=== PATIENT | male | born 1965 | race Two or more races ===

== ENCOUNTER 2017-09-24 19:55 | Inpatient (IN) | payer OTHER ==
[~2017-09-24] VITALS: Ht 167.6 cm; Wt 153.3 kg
[~2017-09-24 19:55] MED LIST: ACET325T9 PO; ATOR10TA PO; CLIN300C8 PO; Hydrocodone/Acetaminophen PO; METF-620 PO
--- NOTE | 2017-09-24 20:20 | PHYS DOC ---
Adult General Chief Complaint Chief Complaint: LOWEREXTREMITY INJURY HPI HPI Patient is a 52 year old M who presents with diabetic wound ulcers or bleeding. Patient was seen last night and the hospital for bleeding diabetic ulcer in which they wrapped it and told to follow-up with with wound care. Patient has appointment with the wound care clinic tomorrow however his wound daily bleeding. Patient currently 9 antibiotics but has been for these nonhealing diabetic foot ulcers. Patient denies any shortness of breath or chest pain. Patient denies any fevers. Patient has no other complaints. Review of Systems Review of Systems GEN: Denies fevers, chills, sweats HEENT: Denies blurred vision, sore throat CV: Denies chest pain RESP: Denies shortness of air, cough GI: Denies n/v/d NEURO: Denies confusion, dizziness MSK: Lower extremity swelling with nonhealing ulcers All other systems were reviewed and found to be within normal limits, except as documented in this note. Allergies Allergies Allergies Coded Allergies Type Severity Reaction Last Updated Verified diphenhydramine Allergy Intermediate 03/27/15 Yes Physical Exam Physical Exam GEN.: Mild distress. Alert and oriented. HEENT: Head is normocephalic, atraumatic NECK: Supple. LUNGS: CTAB. HEART: RRR, S1, S2 present. Peripheral pulses intact ABDOMEN: Soft, nontender. Positive bowel sounds. EXTREMITIES: Without any cyanosis. +2 pitting edema to lower extremity with skin discoloration secondary to nonhealing leg ulcers and venous stasis, no active bleeding seen NEUROLOGIC: Normal speech, normal tone PSYCHIATRIC: Normal affect, normal mood. SKIN: Normal nonhealing leg ulcers Current Patient Data Vital Signs Vital Signs Date Time Temp Pulse Resp B/P (MAP) Pulse Ox O2 Delivery O2 Flow Rate FiO2 09/24/17 20:39 80 19 129/78 (95) 97 Room Air 09/24/17 20:02 97.9 97.9 Lab Values Laboratory Tests Test 09/24/17 20:27 Glucose (Fingerstick) 147 mg/dL (70-99) H EKG EKG 2020: EKG is normal sinus rhythm rate of 80 no STEMI[] Radiology/Procedures Radiology/Procedures [] Course & Med Decision Making Course & Med Decision Making Pertinent Labs and Imaging studies reviewed. (See chart for details) ED course: Patient was seen and examined emergency room septic workup was ordered Patient was updated on plan to admit 2105: Discussed CC/HP/PMH with Dr. Odonnell and recommends admit [] MDM: After reviewing the chart, CC/HPI/PMH, physical exam, [lab results], [ radiological results], I think the patient has chronic nonhealing diabetic foot ulcers on the lower extremity bilaterally that are continuing to bleed and the patient needs wound care and further management. We'll start the patient on IV antibiotics and admit for further evaluation. [] Dragon Disclaimer Dragon Disclaimer This electronic medical record was generated, in whole or in part, using a voice recognition dictation system. Departure Departure Impression: Primary Impression: Diabetic leg ulcer Additional Impression: Leg edema Disposition: ADMITTED INPATIENT Admitting Physician: Holly Odonnell Condition: IMPROVED Problem Qualifiers CHARANJIT JANG DO Sep 24, 2017 20:20
--- NOTE | 2017-09-24 20:23 | EKG ---
[facility] [address] [place] [address] Test Date: 2017-09-24 Test Time: 20:21:02 Pat Name: BLESSING YARBROUGH Department: Room: Gender: M Steward/Stewardess Lounge: BART : 1965 Requested By: CHARANJIT JANG Order Number: [id number] Reading MD: Measurements Intervals [place] Rate: 80 P: 0 MO: 158 QRS: 9 QRSD: 82 T: 26 QT: 378 QTc: 440 Interpretive Statements SINUS RHYTHM VENTRICULAR PREMATURE COMPLEX(ES) QRS(T) CONTOUR ABNORMALITY CONSIDER ANTEROSEPTAL MYOCARDIAL DAMAGE ABNORMAL ECG RI6.01 No previous ECG available for comparison
[2017-09-24 21:04] LABS: BASO # 0.1 x10^3/uL (0.0-0.2); BASO % 1 % (0-3); EOS % 8 % (0-3); HEMOGLOBIN 12.1 g/dL (13.0-17.5); LYMPH # 1.7 x10^3/uL (1.0-4.8); LYMPH % 15 % (24-48); MEAN CORPUSCULAR HEMOGLOBIN 26 pg (25-35); MEAN CORPUSCULAR HGB CONC 32 g/dL (31-37); MEAN CORPUSCULAR VOLUME 83 fL (79-100); MONO % 5 % (0-9); NEUT % 72 % (31-73); PLATELET COUNT 219 x10^3/uL (140-400); RED BLOOD COUNT 4.59 x10^6/uL (4.30-5.70); RED CELL DISTRIBUTION WIDTH 15.6 % (11.5-14.5); WHITE BLOOD COUNT 11.5 x10^3/uL (4.0-11.0)
[2017-09-24 21:09] LABS: INR 1.1 (0.8-1.1); PROTHROMBIN TIME PATIENT 13.1 SEC (11.7-14.0)
[2017-09-24 21:13] LABS: CALCIUM 8.6 mg/dL (8.5-10.1); CREATININE 0.9 mg/dL (0.7-1.3); GFR 88.3; POTASSIUM 3.6 mmol/L (3.5-5.1)
[2017-09-24 21:18] LABS: ALBUMIN 3.4 g/dL (3.4-5.0); ALBUMIN/GLOBULIN RATIO 0.8 (1.0-1.7); TOTAL BILIRUBIN 0.2 mg/dL (0.2-1.0); TOTAL PROTEIN 7.9 g/dL (6.4-8.2)
[2017-09-24] MEDS ORDERED: VANCOMYCIN 2 GM in IV DEXTROSE 5% 500 ML IV ONE (21:30)
[2017-09-24] MEDS ORDERED: ONDANSETRON PF 4 MG/2 ML VIAL. IV PRN (21:30)
[2017-09-24] MEDS ORDERED: VANCOMYCIN 2 GM in IV DEXTROSE 5 %-0.45 % NACL 500 ML IV ONE (21:30)
[2017-09-24 22:00] VITALS: BP 155/81
[2017-09-24] MEDS: VANCOMYCIN PER PHARMACY MC PRN (23:18)
[2017-09-25 03:03] VITALS: BP 116/71
[2017-09-25 04:51] LABS: BASO % 0 % (0-3); EOS % 8 % (0-3); HEMATOCRIT 37.7 % (39.0-53.0); HEMOGLOBIN 11.9 g/dL (13.0-17.5); LYMPH # 1.6 x10^3/uL (1.0-4.8); LYMPH % 15 % (24-48); MEAN CORPUSCULAR HEMOGLOBIN 26 pg (25-35); MEAN CORPUSCULAR HGB CONC 32 g/dL (31-37); MEAN CORPUSCULAR VOLUME 82 fL (79-100); MONO % 7 % (0-9); NEUT % 70 % (31-73); PLATELET COUNT 212 x10^3/uL (140-400); RED BLOOD COUNT 4.58 x10^6/uL (4.30-5.70); RED CELL DISTRIBUTION WIDTH 15.9 % (11.5-14.5)
[2017-09-25 05:07] LABS: ALBUMIN 3.3 g/dL (3.4-5.0); ALBUMIN/GLOBULIN RATIO 0.8 (1.0-1.7); CALCIUM 8.3 mg/dL (8.5-10.1); CREATININE 0.7 mg/dL (0.7-1.3); TOTAL BILIRUBIN 0.3 mg/dL (0.2-1.0); TOTAL PROTEIN 7.5 g/dL (6.4-8.2)
[2017-09-25] MEDS: VANCOMYCIN 2 GM in IV DEXTROSE 5 %-0.45 % NACL 500 ML IV SCH ×2 (06:05→14:11)
[2017-09-25 07:00] VITALS: BP 135/75
--- NOTE | 2017-09-25 07:29 | RAD ---
Portable chest, 09/24/2017: History: Congestive heart failure Comparison is made to a study from 09/20/2016. The heart size is normal. The pulmonary vascularity is at the upper limits of normal. No pulmonary consolidation is seen. There is no evidence of pleural fluid. Moderate spurring is present in the spine. IMPRESSION: No acute cardiopulmonary abnormality is detected.
[2017-09-25] MEDS: LACTOBACILLUS RHAMNOSUS GG 1 CAPSULE. PO SCH ×2 (08:35→20:47)
--- NOTE | 2017-09-25 10:15 | HP ---
ADMIT DATE: 09/24/2017 CHIEF COMPLAINT: Lower extremity injuries. HISTORY OF PRESENT ILLNESS: The patient is a pleasant 52-year-old male who is morbidly obese. He has diabetes and he has severe peripheral vascular disease. Basically, he has had diabetic wounds on his legs. He is also bumped in there bleeding. I have discussed the case with ER physician and the wound care nurse who remained with the patient for wound care and IV antibiotics. PAST MEDICAL HISTORY: Obesity, diabetes, hypertension, hyperlipidemia, chronic pain and arthritis. ALLERGIES: DIPHENHYDRAMINE. FAMILY HISTORY: Diabetes. SOCIAL HISTORY: Does not drink, smoke or take drugs. He works at a [employer]. MEDICATIONS: Reviewed. REVIEW OF SYSTEMS: GENERAL: No history of weight change, weakness or fevers. SKIN: No bruising, hair changes or rashes. EYES: No blurred, double or loss of vision. NOSE AND THROAT: No history of nosebleeds, hoarseness or sore throat. HEART: No history of palpitations, chest pain or shortness of breath on exertion. LUNGS: Denies cough, hemoptysis, wheezing or shortness of breath. GASTROINTESTINAL: Denies changes in appetite, nausea, vomiting, diarrhea or constipation. GENITOURINARY: No history of frequency, urgency, hesitancy or nocturia. NEUROLOGIC: Denies history of numbness, tingling, tremor or weakness. PSYCHIATRIC: No history of panic, anxiety or depression. ENDOCRINE: No history of heat or cold intolerance, polyuria or polydipsia. EXTREMITIES: He complains of pain and oozing. PHYSICAL EXAMINATION: VITAL SIGNS: Temperature afebrile, pulse 97, respirations 18 and blood pressure 144/60. GENERAL: He is alert and cooperative. HEART: Normal S1 and S2. LUNGS: Clear. ABDOMEN: Soft and obese. EXTREMITIES: He has got clean, dry and intact bandaging on both lower extremities, please see the pictures. ENDOCRINE: No thyromegaly. LYMPHATICS: No cervical nodes. HEMATOPOIETIC: No bruising. LABORATORY DATA: White count 11, hemoglobin 12 and platelets 219. Electrolytes: Sodium 137, potassium 4.0, chloride 102, bicarb 25, BUN 14, creatinine 0.7 and glucose 119. Troponin 0. BNP 228. ASSESSMENT AND PLAN: Diabetic lesions on his legs from severe peripheral vascular disease secondary to diabetes in a middle-aged male who has multiple comorbidities. The patient is being admitted. We are starting IV antibiotics. Consult with the wound care nurse. I did call her as well. Physical therapy and occupational therapy. Resume home medicines. Frequent labs. PROGNOSIS: Guarded. AIDAN WASHINGTON DO DR: CHAS/aziza JOB#: [id number] / [id number]
[2017-09-25 11:00] VITALS: BP 101/45
[2017-09-25] MEDS ORDERED: ACETAMINOPHEN 325 MG TABLET. PO PRN (14:15)
[2017-09-25] MEDS: VANCOMYCIN PER PHARMACY MC PRN ×2 (14:32→22:38)
[2017-09-25 15:00] VITALS: BP 144/77
[2017-09-25 19:00] VITALS: BP 136/71
[2017-09-25] MEDS: ATORVASTATIN CALCIUM 10 MG TABLET. PO SCH (20:46)
[2017-09-25 23:00] VITALS: BP 130/77
[2017-09-25] MEDS: HYDROcodone/APAP 5/325MG 1 TAB TABLET PO PRN (23:44)
[2017-09-26 03:00] VITALS: BP 107/57
[2017-09-26] MEDS ORDERED: VANCOMYCIN 2 GM in IV DEXTROSE 5 %-0.45 % NACL 500 ML IV SCH (06:00)
[2017-09-26 07:00] VITALS: BP 124/77
[2017-09-26] MEDS: LACTOBACILLUS RHAMNOSUS GG 1 CAPSULE. PO SCH ×2 (07:58→20:48)
--- NOTE | 2017-09-26 09:29 | PDOC ---
Infectious Disease Note Vital Sign Vital Signs Vital Signs Date Time Temp Pulse Resp B/P (MAP) Pulse Ox O2 Delivery O2 Flow Rate FiO2 09/26/17 07:20 Room Air 09/26/17 07:00 97.5 70 18 124/77 (93) 94 97.5 Labs Lab Laboratory Tests Test 09/25/17 11:39 09/25/17 16:47 09/25/17 21:02 09/25/17 21:10 Glucose (Fingerstick) 107 mg/dL (70-99) 86 mg/dL (70-99) 83 mg/dL (70-99) Vancomycin Level Trough 26.8 mcg/mL (10.0-20.0) Vancomycin Last Dose Date Vancomycin Last Dose Time Test 09/26/17 08:06 Glucose (Fingerstick) 133 mg/dL (70-99) Objective Assessment Leukocytosis , reactive Bleeding after scratching Mark lower ext venous insufficiency ulcers Obesity DM Plan Plan of Care d/c vanc pt does not need any antibiotics local care wt loss leg elevation compression dressings arterial circulation check ABDIRAHMAN PÉREZ MD Sep 26, 2017 09:29
[2017-09-26] MEDS ORDERED: ONDANSETRON PF 4 MG/2 ML VIAL. IV PRN (10:15)
[2017-09-26 11:00] VITALS: BP 146/83
--- NOTE | 2017-09-26 11:05 | PDOC ---
PROGRESS NOTES Chief Complaint Chief Complaint Leukocytosis , reactive Bleeding after scratching Mark lower ext venous insufficiency ulcers Obesity DM claims good control History of Present Illness History of Present Illness Patient seen, wounds inspected, picture seen on chart area Patient claims good blood sugar control at home, unknown hemoglobin A1c. On IV antibiotics by ID. Leukocytosis now normalized, no fever. Claims diabetic less than 10 years Plan: I will check hemoglobin A1c There are mention of peripheral vascular disease and other notes but I do not see any imaging. I will do FIDEL, ultrasound Arterial. Continue wound care Vitals Vitals Vital Signs Date Time Temp Pulse Resp B/P (MAP) Pulse Ox O2 Delivery O2 Flow Rate FiO2 09/26/17 07:20 Room Air 09/26/17 07:00 97.5 70 18 124/77 (93) 94 97.5 Physical Exam General: Alert, Oriented X3, Cooperative Heart: Regular rate, Normal S1, Normal S2 Lungs: Clear Abdomen: Normal bowel sounds, Soft Extremities: Other (neck lower extremity edema) Skin: Other (lateral lower extremity pressure sores/no wheezing or weeping currently, but he claims it did have blood on admission.) Labs LABS Laboratory Tests Test 09/25/17 11:39 09/25/17 16:47 09/25/17 21:02 09/25/17 21:10 Glucose (Fingerstick) 107 mg/dL (70-99) 86 mg/dL (70-99) 83 mg/dL (70-99) Vancomycin Level Trough 26.8 mcg/mL (10.0-20.0) Vancomycin Last Dose Date Vancomycin Last Dose Time Test 09/26/17 08:06 Glucose (Fingerstick) 133 mg/dL (70-99) Assessment and Plan Assessmemt and Plan Problems Medical Problems: (1) Diabetic leg ulcer Status: Acute (2) Leg edema Status: Acute Problems: Comment Review of Relevant I have reviewed the following items norah (where applicable) has been applied. Labs Laboratory Tests Test 09/24/17 20:27 09/24/17 20:50 09/25/17 04:10 09/25/17 07:59 Glucose (Fingerstick) 147 mg/dL (70-99) 151 mg/dL (70-99) White Blood Count 11.5 x10^3/uL (4.0-11.0) 11.0 x10^3/uL (4.0-11.0) Red Blood Count 4.59 x10^6/uL (4.30-5.70) 4.58 x10^6/uL (4.30-5.70) Hemoglobin 12.1 g/dL (13.0-17.5) 11.9 g/dL (13.0-17.5) Hematocrit 38.0 % (39.0-53.0) 37.7 % (39.0-53.0) Mean Corpuscular Volume 83 fL (79-100) 82 fL (79-100) Mean Corpuscular Hemoglobin 26 pg (25-35) 26 pg (25-35) Mean Corpuscular Hemoglobin Concent 32 g/dL (31-37) 32 g/dL (31-37) Red Cell Distribution Width 15.6 % (11.5-14.5) 15.9 % (11.5-14.5) Platelet Count 219 x10^3/uL (140-400) 212 x10^3/uL (140-400) Neutrophils (%) (Auto) 72 % (31-73) 70 % (31-73) Lymphocytes (%) (Auto) 15 % (24-48) 15 % (24-48) Monocytes (%) (Auto) 5 % (0-9) 7 % (0-9) Eosinophils (%) (Auto) 8 % (0-3) 8 % (0-3) Basophils (%) (Auto) 1 % (0-3) 0 % (0-3) Neutrophils # (Auto) 8.2 x10^3uL (1.8-7.7) 7.8 x10^3uL (1.8-7.7) Lymphocytes # (Auto) 1.7 x10^3/uL (1.0-4.8) 1.6 x10^3/uL (1.0-4.8) Monocytes # (Auto) 0.6 x10^3/uL (0.0-1.1) 0.7 x10^3/uL (0.0-1.1) Eosinophils # (Auto) 0.9 x10^3/uL (0.0-0.7) 0.8 x10^3/uL (0.0-0.7) Basophils # (Auto) 0.1 x10^3/uL (0.0-0.2) 0.0 x10^3/uL (0.0-0.2) Prothrombin Time 13.1 SEC (11.7-14.0) Prothromb Time International Ratio 1.1 (0.8-1.1) Sodium Level 138 mmol/L (136-145) 137 mmol/L (136-145) Potassium Level 3.6 mmol/L (3.5-5.1) 4.0 mmol/L (3.5-5.1) Chloride Level 102 mmol/L (98-107) 102 mmol/L (98-107) Carbon Dioxide Level 26 mmol/L (21-32) 25 mmol/L (21-32) Anion Gap 10 (6-14) 10 (6-14) Blood Urea Nitrogen 20 mg/dL (8-26) 14 mg/dL (8-26) Creatinine 0.9 mg/dL (0.7-1.3) 0.7 mg/dL (0.7-1.3) Estimated GFR (Cockcroft-Gault) 88.3 118.0 BUN/Creatinine Ratio 22 (6-20) 20 (6-20) Glucose Level 148 mg/dL (70-99) 119 mg/dL (70-99) Lactic Acid Level 0.9 mmol/L (0.4-2.0) Calcium Level 8.6 mg/dL (8.5-10.1) 8.3 mg/dL (8.5-10.1) Total Bilirubin 0.2 mg/dL (0.2-1.0) 0.3 mg/dL (0.2-1.0) Aspartate Amino Transf (AST/SGOT) 11 U/L (15-37) 11 U/L (15-37) Alanine Aminotransferase (ALT/SGPT) 17 U/L (16-63) 16 U/L (16-63) Alkaline Phosphatase 129 U/L (46-116) 110 U/L (46-116) Troponin I Quantitative < 0.017 ng/mL (0.000-0.055) VE-Grb-P-Type Natriuretic Peptide 228 pg/mL (0-124) Total Protein 7.9 g/dL (6.4-8.2) 7.5 g/dL (6.4-8.2) Albumin 3.4 g/dL (3.4-5.0) 3.3 g/dL (3.4-5.0) Albumin/Globulin Ratio 0.8 (1.0-1.7) 0.8 (1.0-1.7) Test 09/25/17 11:39 09/25/17 16:47 09/25/17 21:02 09/25/17 21:10 Glucose (Fingerstick) 107 mg/dL (70-99) 86 mg/dL (70-99) 83 mg/dL (70-99) Vancomycin Level Trough 26.8 mcg/mL (10.0-20.0) Vancomycin Last Dose Date Vancomycin Last Dose Time Test 09/26/17 08:06 Glucose (Fingerstick) 133 mg/dL (70-99) Laboratory Tests Test 09/25/17 11:39 09/25/17 16:47 09/25/17 21:02 09/25/17 21:10 Glucose (Fingerstick) 107 mg/dL (70-99) 86 mg/dL (70-99) 83 mg/dL (70-99) Vancomycin Level Trough 26.8 mcg/mL (10.0-20.0) Vancomycin Last Dose Date Vancomycin Last Dose Time Test 09/26/17 08:06 Glucose (Fingerstick) 133 mg/dL (70-99) Microbiology 09/24/17 Blood Culture - Preliminary, Resulted NO GROWTH AFTER 1 DAY Medications Current Medications Vancomycin HCl (Vanco Per Pharmacy) 1 each PRN DAILY PRN MC SEE COMMENTS Last administered on 09/25/17 22:38; Start 09/24/17 at 21:15; Stop 09/26/17 at 09 :34; Status DC Vancomycin HCl 2 gm/Dextrose 500 ml @ 250 mls/hr 1X ONCE IV ; Start 09/24/17 at 21:30; Stop 09/24/17 at 21:30; Status DC Vancomycin HCl 2 gm/Dextrose/ Sodium Chloride 500 ml @ 250 mls/hr 1X ONCE IV Last administered on 09/24/17t 21:23; Start 09/24/17 at 21:30; Stop 09/24/17 at 23:29; Status DC Ondansetron HCl (Zofran) 4 mg PRN Q8HRS PRN IV NAUSEA/VOMITING; Start at 21:30; Stop 09/25/17 at 21:29; Status DC Vancomycin HCl 2 gm/Dextrose/ Sodium Chloride 500 ml @ 250 mls/hr Q8HRS IV Last administered on 09/25/17 14:11; Start 09/25/17 at 06:00; Stop 09/25/17 at 21:42; Status DC Vancomycin HCl 1 each 1X ONCE MC Last administered on 09/25/17 21:30; Start 09/25/17 at 21:30; Stop 09/25/17 at 21:31; Status DC Lactobacillus Rhamnosus (Culturelle) 1 cap BID PO Last administered on 07:58; Start 09/25/17 at 09:00 Acetaminophen (Tylenol) 650 mg PRN Q6HRS PRN PO MILD PAIN / TEMP; Start at 14:15 Atorvastatin Calcium (Lipitor) 10 mg QHS PO Last administered on 09/25/17 20: 46; Start 09/25/17 at 21:00 Metformin HCl (Glucophage) 1,000 mg BIDWMEALS PO Last administered on 07:58; Start 09/25/17 at 17:00 Acetaminophen/ Hydrocodone Bitart (Lortab 5/325) 1 tab PRN Q4HRS PRN PO PAIN MILD TO MOD Last administered on 09/25/17 23:44; Start 09/25/17 at 14:30 Vancomycin HCl 2 gm/Dextrose/ Sodium Chloride 500 ml @ 250 mls/hr Q12H IV Last administered on 09/26/17 06:21; Start 09/26/17 at 06:00; Stop 09/26/17 at 09:34; Status DC Vancomycin HCl 1 each 1X ONCE MC ; Start 09/27/17 at 17:30; Stop 09/27/17 at 17:31 Ondansetron HCl (Zofran) 4 mg PRN Q6HRS PRN IV NAUSEA/VOMITING; Start at 10:15 Active Scripts Active Metformin Hcl 1,000 Mg Tablet 1,000 Mg PO BIDAC [Hydrocodone/Acetaminophen] 1 TAB Tablet 1 Tab PO PRN Q4HRS PRN Tylenol (Acetaminophen) 325 Mg Tablet 650 Mg PO PRN Q6HRS PRN Reported Lipitor (Atorvastatin Calcium) 10 Mg Tablet 1 Tab PO QHS Vitals/I & O Vital Sign - Last 24 Hours 09/25/17 09/25/17 09/25/17 09/25/17 15:00 19:00 19:50 23:00 Temp 96.6 97.7 97.5 96.6 97.7 97.5 Pulse 74 76 78 Resp 20 14 20 B/P (MAP) 144/77 (99) 136/71 (92) 130/77 (94) Pulse Ox 98 96 95 O2 Delivery Room Air Room Air Room Air Room Air 09/25/17 09/26/17 09/26/17 09/26/17 23:44 00:47 03:00 07:00 Temp 97.5 97.5 97.5 97.5 Pulse 75 70 Resp 20 20 16 18 B/P (MAP) 107/57 (74) 124/77 (93) Pulse Ox 96 96 96 94 O2 Delivery Room Air Room Air Room Air Room Air 09/26/17 09/26/17 07:00 07:20 Temp 97.5 97.5 Pulse 70 Resp 18 B/P (MAP) 124/77 (93) Pulse Ox 94 O2 Delivery Room Air Room Air Intake and Output 09/25/17 09/25/17 09/26/17 15:00 23:00 07:00 Intake Total 360 ml 300 ml 1400 ml Output Total 225 ml 200 ml Balance 135 ml 100 ml 1400 ml VIRGILIO SELBY MD Sep 26, 2017 11:05
--- NOTE | 2017-09-26 11:33 | CONS ---
DATE OF CONSULTATION: 09/26/2017 REQUESTING PHYSICIAN: Dr. Holly Odonnell. REASON FOR CONSULTATION: Bilateral lower extremity ulcers. HISTORY OF PRESENT ILLNESS: This is a 52-year-old gentleman with history of diabetes, morbid obesity who evidently was scratching his leg at the back of the left calf where he started bleeding and squirting blood; hence, the patient was seen in [place] ER and then he was supposed to have followed up with the wound care center at [place] and he ended up in the ER in admission because of continued bleeding evidently. The patient has these ulcers for almost 10 years or so. The patient denies any fever, denies any nausea, vomiting, diarrhea, chest pain, shortness of breath, abdominal pain, urinary symptoms or bowel symptoms. PAST MEDICAL HISTORY: Positive for morbid obesity, diabetes mellitus, hypertension, hyperlipidemia, venous insufficiency ulcers for years. SOCIAL HISTORY: Negative for smoking, alcohol, illicit drug use. ALLERGIES: LISTED ALLERGIC TO BENADRYL. CURRENT MEDICATIONS: Reviewed. The patient is on vancomycin. REVIEW OF SYSTEMS: As per HPI, all other systems reviewed are negative. PHYSICAL EXAMINATION: GENERAL: Alert, oriented gentleman, not in distress. VITAL SIGNS: Stable, afebrile. HEENT: NAD. NECK: Supple, no JVP, no lymphadenopathy. LUNGS: Clear. HEART: S1, S2 regular. ABDOMEN: Benign. EXTREMITIES: Bilateral lower extremities, superficial ulcers present on both the legs, which are classic for venous insufficiency ulcers. The dorsalis pedis is palpable, although weak. There is no other surrounding erythema or induration. Scratch craft on the left calf distinctly visible, but there are no signs of infection and there is no acute bleeding right now. NEUROLOGICAL: The patient is neurologically intact. LABORATORY DATA: White count is 11,000. BUN and creatinine are normal. Lactic acid 0.9 and vancomycin level seen. Blood culture is done, which is negative. IMAGING STUDIES: The patient has a chest x-ray, which was unremarkable. IMPRESSION: 1. Bleeding from the left leg after scratching, has resolved. 2. Leukocytosis, which is reactive from the bleeding. 3. Bilateral lower extremity venous insufficiency ulcers for years, unchanged. 4. Morbid obesity. 5. Diabetes. 6. Hypertension. RECOMMENDATIONS: We would discontinue vancomycin. I do not see the need for any antibiotics. He just needs local care, weight loss, leg elevation, compression dressings and at some point, he needs to have arterial circulation check done to make sure there is no combination of factors for these ulcers not healing. Thank you very much, Dr. Odonnell, for giving me the opportunity to participate in this patient's care. ABDIRAHMAN PÉREZ MD DR: CAT/aziza JOB#: [id number] / [id number]
[2017-09-26 15:00] VITALS: BP 128/63
--- NOTE | 2017-09-26 15:17 | PDOC2 ---
CONSULT Date of Consult Date of Consult DATE: 09/26/17 TIME: 15:04 Reason for Consult Reason for Consult: Bilateral lower extremity ulcers Referring Physician Referring Physician: Dr. Odonnell Identification/Chief Complaint Chief Complaint Patient reports long chronic history of bilateral lower extremity ulcers. Persisting bleeding was identified on the left prior to admission. Problems: Source Source: Chart review, Patient History of Present Illness Reason for Visit: Is a 52-year-old patient recently admitted to the hospital for complications of bilateral venous insufficiency ulcerations. Patient reports long-standing ulcerations. He is a very poor historian. He could not identify chronic wound clinic care, appropriate long-term compression use or even short-term compression therapy in the past. It is unclear what degree of workup the patient has had to this point. I was not able to identify venous or arterial intervention in the past. At this time he was not aware of increased discomfort , fever or chills. He denied calf pain, shortness of breath or chest discomfort. Comorbid conditions of diabetes and morbid obesity are noted. Past Medical History Cardiovascular: HTN, Hyperlipidemia Endocrine: Diabetes, Other (morbid obesity) Past Surgical History Past Surgical History: No pertinent history Family History Family History: Obesity Social History Social History This is denied by the patient Current Problem List Problem List Problems Medical Problems: (1) Diabetic leg ulcer Status: Acute (2) Leg edema Status: Acute Current Medications Current Medications Current Medications Vancomycin HCl (Vanco Per Pharmacy) 1 each PRN DAILY PRN MC SEE COMMENTS Last administered on 09/25/17 22:38; Start 09/24/17 at 21:15; Stop 09/26/17 at 09 :34; Status DC Vancomycin HCl 2 gm/Dextrose 500 ml @ 250 mls/hr 1X ONCE IV ; Start 09/24/17 at 21:30; Stop 09/24/17 at 21:30; Status DC Vancomycin HCl 2 gm/Dextrose/ Sodium Chloride 500 ml @ 250 mls/hr 1X ONCE IV Last administered on 09/24/17 21:23; Start 09/24/17 at 21:30; Stop 09/24/17 at 23:29; Status DC Ondansetron HCl (Zofran) 4 mg PRN Q8HRS PRN IV NAUSEA/VOMITING; Start at 21:30; Stop 09/25/17 at 21:29; Status DC Vancomycin HCl 2 gm/Dextrose/ Sodium Chloride 500 ml @ 250 mls/hr Q8HRS IV Last administered on 09/25/17 14:11; Start 09/25/17 at 06:00; Stop 09/25/17 at 21:42; Status DC Vancomycin HCl 1 each 1X ONCE MC Last administered on 09/25/17 21:30; Start 09/25/17 at 21:30; Stop 09/25/17 at 21:31; Status DC Lactobacillus Rhamnosus (Culturelle) 1 cap BID PO Last administered on 07:58; Start 09/25/17 at 09:00 Acetaminophen (Tylenol) 650 mg PRN Q6HRS PRN PO MILD PAIN / TEMP; Start at 14:15 Atorvastatin Calcium (Lipitor) 10 mg QHS PO Last administered on 09/25/17 20: 46; Start 09/25/17 at 21:00 Metformin HCl (Glucophage) 1,000 mg BIDWMEALS PO Last administered on 07:58; Start 09/25/17 at 17:00 Acetaminophen/ Hydrocodone Bitart (Lortab 5/325) 1 tab PRN Q4HRS PRN PO PAIN MILD TO MOD Last administered on 09/25/17 23:44; Start 09/25/17 at 14:30 Vancomycin HCl 2 gm/Dextrose/ Sodium Chloride 500 ml @ 250 mls/hr Q12H IV Last administered on 09/26/17 06:21; Start 09/26/17 at 06:00; Stop 09/26/17 at 09:34; Status DC Vancomycin HCl 1 each 1X ONCE MC ; Start 09/27/17 at 17:30; Stop 09/27/17 at 17:31; Status Cancel Ondansetron HCl (Zofran) 4 mg PRN Q6HRS PRN IV NAUSEA/VOMITING; Start at 10:15 Active Scripts Active Metformin Hcl 1,000 Mg Tablet 1,000 Mg PO BIDAC [Hydrocodone/Acetaminophen] 1 TAB Tablet 1 Tab PO PRN Q4HRS PRN Tylenol (Acetaminophen) 325 Mg Tablet 650 Mg PO PRN Q6HRS PRN Reported Lipitor (Atorvastatin Calcium) 10 Mg Tablet 1 Tab PO QHS Allergies Allergies: Coded Allergies: diphenhydramine (Verified Allergy, Intermediate, 03/27/15) ROS General: YES: Other (patient general he denied all positives in the review of systems.) Respiratory: YES: SOB with excertion Neurological: Yes Gait Disturbance (wide stance gait is noted) Skin: Yes Other (very chronic venous insufficiency ulcers as reported above.) Physical Exam General: Alert, Oriented X3, Cooperative HEENT: Atraumatic, PERRLA, EOMI Lungs: Clear to auscultation, Normal air movement Heart: Regular rate Abdomen: Soft, No tenderness Extremities: No clubbing, No cyanosis, Normal pulses (dorsalis pedis pulses were present bilaterally. Quant of flow measurement on the left was 1.16 and on the right was 1.25), Other Skin: Other (the right lower extremity demonstrates a venous insufficiency ulcer measuring 4.5 cm x 7 cm x 0.5 cm with moderate slough. The left lower extremity demonstrates venous insufficiency ulcer measuring 3.5 cm x 3 cm x 0.2 cm.) Neuro: Normal gait, Normal speech Psych/Mental Status: Mental status NL, Other (patient's mood was largely unconcerned with care of venous insufficiency ulcerations.) MUSCULOSKELETAL: Not examined Vitals VITALS Vital Signs Date Time Temp Pulse Resp B/P (MAP) Pulse Ox O2 Delivery O2 Flow Rate FiO2 09/26/17 11:00 97.5 72 18 146/83 (104) 99 Room Air 97.5 Labs Labs Laboratory Tests Test 09/24/17 20:27 09/24/17 20:50 09/25/17 04:10 09/25/17 07:59 Glucose (Fingerstick) 147 mg/dL (70-99) 151 mg/dL (70-99) White Blood Count 11.5 x10^3/uL (4.0-11.0) 11.0 x10^3/uL (4.0-11.0) Red Blood Count 4.59 x10^6/uL (4.30-5.70) 4.58 x10^6/uL (4.30-5.70) Hemoglobin 12.1 g/dL (13.0-17.5) 11.9 g/dL (13.0-17.5) Hematocrit 38.0 % (39.0-53.0) 37.7 % (39.0-53.0) Mean Corpuscular Volume 83 fL (79-100) 82 fL (79-100) Mean Corpuscular Hemoglobin 26 pg (25-35) 26 pg (25-35) Mean Corpuscular Hemoglobin Concent 32 g/dL (31-37) 32 g/dL (31-37) Red Cell Distribution Width 15.6 % (11.5-14.5) 15.9 % (11.5-14.5) Platelet Count 219 x10^3/uL (140-400) 212 x10^3/uL (140-400) Neutrophils (%) (Auto) 72 % (31-73) 70 % (31-73) Lymphocytes (%) (Auto) 15 % (24-48) 15 % (24-48) Monocytes (%) (Auto) 5 % (0-9) 7 % (0-9) Eosinophils (%) (Auto) 8 % (0-3) 8 % (0-3) Basophils (%) (Auto) 1 % (0-3) 0 % (0-3) Neutrophils # (Auto) 8.2 x10^3uL (1.8-7.7) 7.8 x10^3uL (1.8-7.7) Lymphocytes # (Auto) 1.7 x10^3/uL (1.0-4.8) 1.6 x10^3/uL (1.0-4.8) Monocytes # (Auto) 0.6 x10^3/uL (0.0-1.1) 0.7 x10^3/uL (0.0-1.1) Eosinophils # (Auto) 0.9 x10^3/uL (0.0-0.7) 0.8 x10^3/uL (0.0-0.7) Basophils # (Auto) 0.1 x10^3/uL (0.0-0.2) 0.0 x10^3/uL (0.0-0.2) Prothrombin Time 13.1 SEC (11.7-14.0) Prothromb Time International Ratio 1.1 (0.8-1.1) Sodium Level 138 mmol/L (136-145) 137 mmol/L (136-145) Potassium Level 3.6 mmol/L (3.5-5.1) 4.0 mmol/L (3.5-5.1) Chloride Level 102 mmol/L (98-107) 102 mmol/L (98-107) Carbon Dioxide Level 26 mmol/L (21-32) 25 mmol/L (21-32) Anion Gap 10 (6-14) 10 (6-14) Blood Urea Nitrogen 20 mg/dL (8-26) 14 mg/dL (8-26) Creatinine 0.9 mg/dL (0.7-1.3) 0.7 mg/dL (0.7-1.3) Estimated GFR (Cockcroft-Gault) 88.3 118.0 BUN/Creatinine Ratio 22 (6-20) 20 (6-20) Glucose Level 148 mg/dL (70-99) 119 mg/dL (70-99) Lactic Acid Level 0.9 mmol/L (0.4-2.0) Calcium Level 8.6 mg/dL (8.5-10.1) 8.3 mg/dL (8.5-10.1) Total Bilirubin 0.2 mg/dL (0.2-1.0) 0.3 mg/dL (0.2-1.0) Aspartate Amino Transf (AST/SGOT) 11 U/L (15-37) 11 U/L (15-37) Alanine Aminotransferase (ALT/SGPT) 17 U/L (16-63) 16 U/L (16-63) Alkaline Phosphatase 129 U/L (46-116) 110 U/L (46-116) Troponin I Quantitative < 0.017 ng/mL (0.000-0.055) CX-Ipc-C-Type Natriuretic Peptide 228 pg/mL (0-124) Total Protein 7.9 g/dL (6.4-8.2) 7.5 g/dL (6.4-8.2) Albumin 3.4 g/dL (3.4-5.0) 3.3 g/dL (3.4-5.0) Albumin/Globulin Ratio 0.8 (1.0-1.7) 0.8 (1.0-1.7) Test 09/25/17 11:39 09/25/17 16:47 09/25/17 21:02 09/25/17 21:10 Glucose (Fingerstick) 107 mg/dL (70-99) 86 mg/dL (70-99) 83 mg/dL (70-99) Vancomycin Level Trough 26.8 mcg/mL (10.0-20.0) Vancomycin Last Dose Date Vancomycin Last Dose Time Test 09/26/17 08:06 09/26/17 11:22 Glucose (Fingerstick) 133 mg/dL (70-99) 109 mg/dL (70-99) Laboratory Tests Test 09/25/17 16:47 09/25/17 21:02 09/25/17 21:10 09/26/17 08:06 Glucose (Fingerstick) 86 mg/dL (70-99) 83 mg/dL (70-99) 133 mg/dL (70-99) Vancomycin Level Trough 26.8 mcg/mL (10.0-20.0) Vancomycin Last Dose Date Vancomycin Last Dose Time Test 09/26/17 11:22 Glucose (Fingerstick) 109 mg/dL (70-99) Assessment/Plan Assessment/Plan Bilateral venous insufficiency ulcerations with demonstration of fat exposure. Quanta nikhil measurements appear appropriate at 1.16 on the left and 1.25 on the right. Effort was made to place the patient in compression yesterday. He was noted to have taken his compression wraps with him into the shower and gotten the dressings wet. This showed an unusual degree of disregard and lack of cooperation for yesterday's treatment. He is currently placed in enluxtra dressings. These may be usefull in trying to achieve some degree of debridement. We hope to have the patient follow up with us in the wound care center where we may undertake more aggressive therapy such as compression and likely venous insufficiency mapping for potential ablation. Thank you for allowing us to participate in the care of Mr. Bhatia. SWAPNA STEWART DO Sep 26, 2017 15:17
--- NOTE | 2017-09-26 15:44 | RAD ---
Bilateral lower extremity arterial ultrasound with ankle-brachial indices, 09/26/2017: History: Ankle wound, peripheral vascular disease Duplex evaluation of the major arteries in both lower extremities was performed including grayscale, color-flow and spectral Doppler analysis. Both common femoral arteries are widely patent and demonstrate triphasic Doppler waveforms. The superficial femoral and popliteal arteries demonstrate predominantly triphasic Doppler waveforms. No significant focal velocity elevation is seen in these vessels to suggest high-grade focal stenosis. In the right lower leg the posterior tibial Doppler waveform is triphasic. The peroneal and anterior tibial Doppler waveforms are monophasic. The right dorsalis pedis artery is patent demonstrating a monophasic Doppler waveform with a peak systolic velocity 100 cm/s. In the left lower leg the anterior tibial Doppler waveform is biphasic. The left peroneal and posterior tibial Doppler waveforms are monophasic. The left dorsalis pedis Doppler waveform is monophasic with a peak systolic velocity of 60 cm/s. Resting ankle-brachial indices were obtained bilaterally. The arteries are poorly compressible. This is often due to vascular calcification and renders these readings non billing customer service representative of the patient's vascular status. The right resting FIDEL reading was 1.41 while the left FIDEL measurement was 1.28. IMPRESSION: 1. No evidence of significant aortoiliac inflow disease or femoral-popliteal occlusive disease. 2. Mild degradation of the arterial Doppler waveforms in both lower legs.
[2017-09-26 19:00] VITALS: BP 110/55
[2017-09-26] MEDS: ATORVASTATIN CALCIUM 10 MG TABLET. PO SCH (20:48)
[2017-09-26 23:00] VITALS: BP 100/61
[2017-09-27] MEDS: HYDROcodone/APAP 5/325MG 1 TAB TABLET PO PRN (00:17)
[2017-09-27 03:00] VITALS: BP 113/78
[2017-09-27 07:15] VITALS: BP 128/62
[2017-09-27] MEDS: LACTOBACILLUS RHAMNOSUS GG 1 CAPSULE. PO SCH (08:59)
--- NOTE | 2017-09-27 10:48 | PDOC ---
Infectious Disease Note Subjective Subjective pt feeling good ROS ROS GEN: Denies fevers, chills, sweats HEENT: Denies blurred vision, sore throat CV: Denies chest pain RESP: Denies shortness of air, cough GI: Denies n/v/d NEURO: Denies confusion, dizziness MSK: Denies weakness, joint pain/swelling Vital Sign Vital Signs Vital Signs Date Time Temp Pulse Resp B/P (MAP) Pulse Ox O2 Delivery O2 Flow Rate FiO2 09/27/17 08:30 Room Air 09/27/17 07:15 98.4 62 18 128/62 (84) 95 98.4 Physical Exam PHYSICAL EXAM GENERAL: NAD, Alert HEENT: PERRL, OC/OP NECK: Supple, no JVD, no LN LUNGS: Clear HEART: S1S2, no gallop, no murmur ABD: Soft, NT, no organomegaly, no rebound EXT: No edema, no cyanosis,, mark lower ext ulcers KNIT TUBING DYER: Alert, oriented x 3, no focal neurologic deficit SKIN: No rash IV: ok Labs Lab Laboratory Tests Test 09/26/17 11:22 09/26/17 16:56 09/26/17 20:56 09/27/17 07:31 Glucose (Fingerstick) 109 mg/dL (70-99) 100 mg/dL (70-99) 98 mg/dL (70-99) 116 mg/dL (70-99) Objective Assessment Leukocytosis , reactive Bleeding after scratching Mark lower ext venous insufficiency ulcers Obesity DM Plan Plan of Care pt does not need any antibiotics local care wt loss leg elevation compression dressings arterial circulation check ok to d/c f/u with me if needed ABDIRAHMAN PÉREZ MD Sep 27, 2017 10:48
[2017-09-27 11:02] VITALS: BP 152/80
--- NOTE | 2017-09-27 11:09 | PDOC3 ---
Discharge Summary Visit Information Date of Admission: Sep 24, 2017 Date of Discharge: Sep 27, 2017 Admitting Diagnosis Comment: Leukocytosis , reactive Bleeding after scratching Mark lower ext venous insufficiency ulcers Obesity DM claims good control NO leg infection Final Diagnosis Problems Medical Problems: (1) Diabetic leg ulcer Status: Acute (2) Leg edema Status: Acute Brief Hospital Course Allergies Allergies Coded Allergies Type Severity Reaction Last Updated Verified diphenhydramine Allergy Intermediate 03/27/15 Yes Vital Signs Vital Signs Date Time Temp Pulse Resp B/P (MAP) Pulse Ox O2 Delivery O2 Flow Rate FiO2 09/27/17 11:02 97.7 74 18 152/80 (104) 96 Room Air 97.7 Lab Results Laboratory Tests Test 09/25/17 11:39 09/25/17 16:47 09/25/17 21:02 09/25/17 21:10 Glucose (Fingerstick) 107 mg/dL (70-99) 86 mg/dL (70-99) 83 mg/dL (70-99) Vancomycin Level Trough 26.8 mcg/mL (10.0-20.0) Vancomycin Last Dose Date Vancomycin Last Dose Time Test 09/26/17 08:06 09/26/17 11:22 09/26/17 16:56 09/26/17 20:56 Glucose (Fingerstick) 133 mg/dL (70-99) 109 mg/dL (70-99) 100 mg/dL (70-99) 98 mg/dL (70-99) Test 09/27/17 07:31 Glucose (Fingerstick) 116 mg/dL (70-99) Laboratory Tests Test 09/26/17 11:22 09/26/17 16:56 09/26/17 20:56 09/27/17 07:31 Glucose (Fingerstick) 109 mg/dL (70-99) 100 mg/dL (70-99) 98 mg/dL (70-99) 116 mg/dL (70-99) Brief Hospital Course Mr. Bhatia is a 52 old male with diabetes, rather good control. Admitted for bilateral leg wounds. FIDEL is normal. So there was no real arterial insufficiency. Comanage with infectious disease. No need for IV antibiotics or by mouth antibiotics. But he does need wound care. Wound care did consult. Advised to follow-up as outpatient. Patient is on metformin and Percocet at home. We did not start any new medications. He did not need any narcotics during his stay here with us. Sincerely and examined, wound inspected. Discharge disposition to home Discharge structures follow up with wound care on Monday. Please apply wound dressing changes dressings. Discharge time 31 minutes discussed with RIAZ Caballero Discharge Information Condition at Discharge: Improved, Stable Follow Up: Weeks (ff up WOund care clinic monday) Disposition/Orders: D/C to Home Scheduled Atorvastatin Calcium (Lipitor), 1 TAB PO QHS, (Reported) Metformin Hcl (Metformin Hcl), 1,000 MG PO BIDAC Scheduled PRN Acetaminophen (Tylenol), 650 MG PO PRN Q6HRS PRN for PAIN / TEMP [Hydrocodone/Acetaminophen], 1 TAB PO PRN Q4HRS PRN for MILD PAIN, 2ND CHOICE Discontinued Medications Clindamycin Hcl (Clindamycin Hcl), 300 MG PO TID, (Reported) VIRGILIO SELBY MD Sep 27, 2017 11:09
== END 2017-09-27 14:22 | disposition home or self-care (01) | DRG 300 ==
LOC: ER 19:55 → 4 NORTH 20:36
PROVIDERS: ADMIT Internal Medicine; ATTEND Internal Medicine
DX: E11.51 Type 2 diabetes mellitus with diabetic peripheral angiopathy without gangrene (principal); Z68.43 Body mass index [BMI] 50.0-59.9, adult; L97.919 Non-pressure chronic ulcer of unspecified part of right lower leg with unspecified severity; L97.929 Non-pressure chronic ulcer of unspecified part of left lower leg with unspecified severity; E11.621 Type 2 diabetes mellitus with foot ulcer; E11.622 Type 2 diabetes mellitus with other skin ulcer; E66.01 Morbid (severe) obesity due to excess calories; L97.509 Non-pressure chronic ulcer of other part of unspecified foot with unspecified severity; D72.829 Elevated white blood cell count, unspecified; E78.5 Hyperlipidemia, unspecified; I10 Essential (primary) hypertension; I87.2 Venous insufficiency (chronic) (peripheral); G89.29 Other chronic pain; M19.90 Unspecified osteoarthritis, unspecified site; Z83.3 Family history of diabetes mellitus; Z88.8 Allergy status to other drugs, medicaments and biological substances
CPT/HCPCS: 36415; 71010; 80053; 80202; 82962; 83036; 83605; 83880; 84484; 85025; 85610; 87040; 93005; 93922; 93923; 96365; J3370; 99285-25

== ENCOUNTER → 2017-10-02 | Outpatient (CLI) | payer OTHER ==
[2017-09-27 11:02] VITALS: BP 152/80
== END | disposition home or self-care (01) ==
LOC: PMGWOUND 12:00
PROVIDERS: ATTEND Emergency Medicine Undersea and Hyperbaric Medicine
DX: I87.313 Chronic venous hypertension (idiopathic) with ulcer of bilateral lower extremity (principal); E11.622 Type 2 diabetes mellitus with other skin ulcer; L97.222 Non-pressure chronic ulcer of left calf with fat layer exposed; L97.212 Non-pressure chronic ulcer of right calf with fat layer exposed; E78.5 Hyperlipidemia, unspecified; G47.33 Obstructive sleep apnea (adult) (pediatric); E66.01 Morbid (severe) obesity due to excess calories; Z68.43 Body mass index [BMI] 50.0-59.9, adult; G89.29 Other chronic pain; E11.51 Type 2 diabetes mellitus with diabetic peripheral angiopathy without gangrene; M19.90 Unspecified osteoarthritis, unspecified site
CPT/HCPCS: 97597

== ENCOUNTER → 2017-10-11 | Outpatient (CLI) | payer OTHER ==
[2017-09-27 11:02] VITALS: BP 152/80
== END | disposition home or self-care (01) ==
LOC: PMGWOUND 10:55
PROVIDERS: ATTEND Preventive Medicine Undersea and Hyperbaric Medicine
DX: I87.313 Chronic venous hypertension (idiopathic) with ulcer of bilateral lower extremity (principal); E11.622 Type 2 diabetes mellitus with other skin ulcer; L97.212 Non-pressure chronic ulcer of right calf with fat layer exposed; L97.222 Non-pressure chronic ulcer of left calf with fat layer exposed; E11.51 Type 2 diabetes mellitus with diabetic peripheral angiopathy without gangrene; E78.5 Hyperlipidemia, unspecified; G47.33 Obstructive sleep apnea (adult) (pediatric); M19.90 Unspecified osteoarthritis, unspecified site; G89.29 Other chronic pain; E66.01 Morbid (severe) obesity due to excess calories; Z68.43 Body mass index [BMI] 50.0-59.9, adult
CPT/HCPCS: 29581; 97597

== ENCOUNTER → 2017-10-13 | Outpatient (CLI) | payer OTHER | END | disposition home or self-care (01) | LOC: PMGWOUND 11:03 | DX: I87.313 Chronic venous hypertension (idiopathic) with ulcer of bilateral lower extremity (principal); L97.212 Non-pressure chronic ulcer of right calf with fat layer exposed; E11.622 Type 2 diabetes mellitus with other skin ulcer; L97.222 Non-pressure chronic ulcer of left calf with fat layer exposed; E11.51 Type 2 diabetes mellitus with diabetic peripheral angiopathy without gangrene; E78.5 Hyperlipidemia, unspecified; G47.33 Obstructive sleep apnea (adult) (pediatric); M19.90 Unspecified osteoarthritis, unspecified site; G89.29 Other chronic pain; E66.01 Morbid (severe) obesity due to excess calories; Z68.43 Body mass index [BMI] 50.0-59.9, adult | CPT/HCPCS: 99214 ==

== ENCOUNTER → 2017-10-18 | Outpatient (CLI) | payer OTHER | END | disposition home or self-care (01) | LOC: PMGWOUND 10:49 | DX: I87.313 Chronic venous hypertension (idiopathic) with ulcer of bilateral lower extremity (principal); L97.212 Non-pressure chronic ulcer of right calf with fat layer exposed; L97.222 Non-pressure chronic ulcer of left calf with fat layer exposed; E78.5 Hyperlipidemia, unspecified; E66.01 Morbid (severe) obesity due to excess calories; G89.29 Other chronic pain; E11.51 Type 2 diabetes mellitus with diabetic peripheral angiopathy without gangrene; M19.90 Unspecified osteoarthritis, unspecified site; G47.33 Obstructive sleep apnea (adult) (pediatric); Z68.43 Body mass index [BMI] 50.0-59.9, adult | CPT/HCPCS: 97597; 97598 ==

== ENCOUNTER → 2017-10-25 | Outpatient (CLI) | payer OTHER | END | disposition home or self-care (01) | LOC: PMGWOUND 10:50 | DX: I87.313 Chronic venous hypertension (idiopathic) with ulcer of bilateral lower extremity (principal); E11.622 Type 2 diabetes mellitus with other skin ulcer; L97.212 Non-pressure chronic ulcer of right calf with fat layer exposed; L97.222 Non-pressure chronic ulcer of left calf with fat layer exposed; E11.51 Type 2 diabetes mellitus with diabetic peripheral angiopathy without gangrene; E78.5 Hyperlipidemia, unspecified; G47.33 Obstructive sleep apnea (adult) (pediatric); M19.90 Unspecified osteoarthritis, unspecified site; G89.29 Other chronic pain; E66.01 Morbid (severe) obesity due to excess calories; Z68.43 Body mass index [BMI] 50.0-59.9, adult | CPT/HCPCS: 97597; 97598 ==

== ENCOUNTER → 2021-07-15 | Outpatient (CLI) | payer OTHER ==
[~2021-07-15] MED LIST changes: +AMOX1TAB11 PO; +ASPI325T8 PO; +CIPR250T30 PO; +CLIN-94 PO; -CLIN300C8 PO; +HYDR-2769 PO; -METF-620 PO; +METF10007 PO
--- NOTE | 2021-07-16 12:22 | RAD ---
EXAM: Lower extremity arterial duplex ultrasound with ankle-brachial indices (FIDEL). History: Bilateral nonhealing ulcers Comparison: None. Technique: Grayscale, color, and spectral Doppler ultrasound images of the lower extremity arteries. Pressure readings were obtained for FIDEL. Findings: Right brachial pressure is 135 mmHg. Left brachial pressure 123 mmHg. Posterior tibial and dorsalis pedis arteries were noncompressible bilaterally. Unable to obtain FIDEL. Peak systolic velocities (cm/s) and waveforms in the lower extremities: Right: Common femoral artery: 169, triphasic Profunda femoris artery: 114, biphasic Proximal superficial femoral artery: 131, monophasic Mid superficial femoral artery: 122, monophasic Distal superficial femoral artery: 84, monophasic Popliteal artery: 141, monophasic Posterior tibial artery: 156 proximally, 147 distally, monophasic Peroneal artery: 17, monophasic Anterior tibial artery: 88, monophasic Dorsalis pedis artery: 128, monophasic Left: Common femoral artery: 153, monophasic Profunda femoris artery: 99, biphasic Proximal superficial femoral artery: 203, monophasic Mid superficial femoral artery: 136, triphasic Distal superficial femoral artery: 119, monophasic Popliteal artery: 126, monophasic Posterior tibial artery: 107 proximal, 126 distally, monophasic Peroneal artery: 117, monophasic Anterior tibial artery: 137, monophasic Dorsalis pedis artery: 168, monophasic IMPRESSION: 1. Worsened bilateral peripheral arterial disease with monophasic waveforms now throughout most of abdon th lower extremities. 2. Mildly elevated peak systolic velocity in the proximal left superficial femoral artery may indicat e focal stenosis. 3. Unable to obtain ABIs due to noncompressible posterior tibial and dorsalis pedis arteries.. 4. Large abnormal lymph node in the right groin measuring 4.7 x [address] of the abdomen an d pelvis to further evaluate. Electronically signed by: Sonya Soriano MD (07/16/2021 12:20 PM) [id number]
== END ==
LOC: US 14:58
PROVIDERS: ATTEND Preventive Medicine Undersea and Hyperbaric Medicine
DX: I73.9 Peripheral vascular disease, unspecified (principal); R59.0 Localized enlarged lymph nodes; L97.919 Non-pressure chronic ulcer of unspecified part of right lower leg with unspecified severity; L97.929 Non-pressure chronic ulcer of unspecified part of left lower leg with unspecified severity
CPT/HCPCS: 93922; 93925

== ENCOUNTER 2021-08-13 17:00 | Inpatient (IN) | payer OTHER ==
[~2021-08-13] VITALS: Ht 167.6 cm; Wt 151.5 kg
[~2021-08-13 17:00] MED LIST changes: -AMOX1TAB11 PO; -ASPI325T8 PO; -CIPR250T30 PO; -HYDR-2769 PO
[2021-08-13] MEDS ORDERED: ASPI325T8 PO (17:27)
[2021-08-13] MEDS ORDERED: CALCIUM CARBONATE 500 MG TAB.CHEW PO PRN (18:00)
[2021-08-13] MEDS ORDERED: ONDANSETRON PF 4 MG/2 ML VIAL. IVP PRN (18:00)
[2021-08-13] MEDS ORDERED: ACETAMINOPHEN 325 MG TABLET. PO PRN ×2 (18:00)
[2021-08-13] MEDS ORDERED: MAG HYDROX/ALUMINUM HYD/SIMETH 30 ML ORAL.SUSP PO PRN (18:00)
[2021-08-13] MEDS ORDERED: MAGNESIUM HYDROXIDE 2,400 MG/30 ML ORAL.SUSP. PO PRN (18:00)
[2021-08-13] MEDS ORDERED: DEXTROSE 50% 25 GM / 50ML DISP.SYRIN. IV PRN (18:00)
--- NOTE | 2021-08-13 18:24 | PDOC1 ---
History and Physical Date of Admission Date of Admission DATE: 08/13/21 TIME: 18:05 Identification/Chief Complaint Chief Complaint Diabetic leg wounds Source Source: Chart review, Patient History of Present Illness History of Present Illness Patient is a 56 yo male with PMHx DM2, PVD, HLD, chronic diabetic leg wounds, morbid obesity, who presents as a direct admit from wound clinic for concerns of non-healing diabetic leg wounds and cellulitis. He is followed in wound care clinic by Dr. Durham. I spoke with Dr. Durham personally who informed me that a recent lower arterial duplex with FIDEL (07/15/21) showed worsened bilateral peripheral artery disease in both lower extremities. He has not been on any recent antibiotics, but was seen by Dr. Durham today who felt inpatient admission was warranted due to extent of cellulitis and non-healing leg wounds. Patient denies any fever, chills, nausea, or vomiting. Will admit for further medical management. Past Medical History Cardiovascular: HTN, Hyperlipidemia Endocrine: Diabetes, Other Past Surgical History Past Surgical History: No pertinent history Family History Family History: Diabetes, Obesity Social History Smoke: No ALCOHOL: none Drugs: None Current Medications Current Medications Current Medications Acetaminophen (Tylenol) 650 mg PRN Q6HRS PRN PO MILD PAIN / TEMP > 100.3'F; Start 08/13/21 at 18:00 Aspirin (Tomy Aspirin) 325 mg DAILY PO ; Start 08/14/21 at 09:00 Atorvastatin Calcium (Lipitor) 10 mg QHS PO ; Start 08/13/21 at 21:00 Insulin Glargine (Lantus Syringe) 10 unit QHS SQ ; Start 08/13/21 at 21:00 Insulin Human Lispro (HumaLOG) 3 units TIDWMEALS SQ ; Start 08/14/21 at 08:00 Dextrose (Dextrose 50%-Water Syringe) 12.5 gm PRN Q15MIN PRN IV SEE COMMENTS; Start 08/13/21 at 18:00 Active Scripts Active Metformin Hcl 1,000 Mg Tablet 1,000 Mg PO BIDAC Tylenol (Acetaminophen) 325 Mg Tablet 650 Mg PO PRN Q6HRS PRN Reported Aspirin 325 Mg Tablet 325 Mg PO DAILY Lipitor (Atorvastatin Calcium) 10 Mg Tablet 1 Tab PO QHS Allergies Allergies: Coded Allergies: diphenhydramine (Verified Allergy, Intermediate, 03/27/15) sulfamethoxazole (Verified Allergy, Intermediate, 08/13/21) trimethoprim (Verified Allergy, Intermediate, 08/13/21) ROS Review of System GENERAL: No history of weight change, weakness or fevers. SKIN: No bruising, hair changes or rashes. EYES: No blurred, double or loss of vision. NOSE AND THROAT: No history of nosebleeds, hoarseness or sore throat. HEART: Denies chest pain, denies palpitations. LUNGS: Denies cough, hemoptysis, wheezing or shortness of breath. GASTROINTESTINAL: Denies nausea, vomiting, abdominal pain. GENITOURINARY: Urinary frequency and urgency. Denies dysuria or hematuria. NEUROLOGIC: Denies history of numbness, tingling, tremor or weakness. PSYCHIATRIC: Denies anxiety, denies depression. ENDOCRINE: No history of heat or cold intolerance, polyuria or polydipsia. EXTREMITIES: Bilateral lower extremity erythema. Denies muscle weakness, joint pain, pain on walking or stiffness. Physical Exam Physical Exam General: Alert, Oriented X3, Cooperative, No acute distress. Morbidly obese. HEENT: PERRLA, EOMI Lungs: Decreased breath sounds bilaterally, normal air movement Heart: RRR, no murmurs Cardiovascular: S1, S2 Abdomen: Normal bowel sounds, Soft, No tenderness. Obese abdomen. Extremities: Tense edema to bilateral lower legs. No clubbing, No cyanosis Skin: ~12 cm area of erythema to bilateral lower legs. Multiple chronic appearing leg wounds with trophic changes. No rashes. Neuro: Normal speech, Normal tone, Sensation intact Psych/Mental Status: Mental status NL, Mood NL Images Images [facility] [address] [place] [address] IMAGING REPORT Signed PATIENT: BLESSING YARBROUGH ACCOUNT: [id number] : 1965 LOCATION: US AGE: 56 SEX: M EXAM STATUS: REG CLI ORD. PHYSICIAN: ROBERT DURHAM MD REASON: NON-HEALING ULCERS BILAT PROCEDURE: DUPLEX LOWER EXTREMITY BILAT EXAM: Lower extremity arterial duplex ultrasound with ankle-brachial indices (FIDEL). History: Bilateral nonhealing ulcers Comparison: None. Technique: Grayscale, color, and spectral Doppler ultrasound images of the lower extremity arteries. Pressure readings were obtained for FIDEL. Findings: Right brachial pressure is 135 mmHg. Left brachial pressure 123 mmHg. Posterior tibial and dorsalis pedis arteries were noncompressible bilaterally. Unable to obtain FIDEL. Peak systolic velocities (cm/s) and waveforms in the lower extremities: Right: Common femoral artery: 169, triphasic Profunda femoris artery: 114, biphasic Proximal superficial femoral artery: 131, monophasic Mid superficial femoral artery: 122, monophasic Distal superficial femoral artery: 84, monophasic Popliteal artery: 141, monophasic Posterior tibial artery: 156 proximally, 147 distally, monophasic Peroneal artery: 17, monophasic Anterior tibial artery: 88, monophasic Dorsalis pedis artery: 128, monophasic Left: Common femoral artery: 153, monophasic Profunda femoris artery: 99, biphasic Proximal superficial femoral artery: 203, monophasic Mid superficial femoral artery: 136, triphasic Distal superficial femoral artery: 119, monophasic Popliteal artery: 126, monophasic Posterior tibial artery: 107 proximal, 126 distally, monophasic Peroneal artery: 117, monophasic Anterior tibial artery: 137, monophasic Dorsalis pedis artery: 168, monophasic IMPRESSION: 1. Worsened bilateral peripheral arterial disease with monophasic waveforms now throughout most of both lower extremities. 2. Mildly elevated peak systolic velocity in the proximal left superficial femoral artery may indicate focal stenosis. 3. Unable to obtain ABIs due to noncompressible posterior tibial and dorsalis pedis arteries.. 4. Large abnormal lymph node in the right groin measuring 4.7 x [address] of the abdomen and pelvis to further evaluate. VTE Prophylaxis Ordered VTE Prophylaxis Devices: No VTE Pharmacological Prophylaxi: Yes Assessment/Plan Assessment/Plan Diabetic leg wounds Bilateral lower extremity cellulitis Peripheral vascular disease DM2 HLD Morbid obesity Plan: Will place consult to vascular surgery Consult to Dr. Durham Will consult wound care nurse Blood cultures, CBD, CMP, lactic acid, CRP Basal/prandial insulin Will initiate treatment with Zosyn Resume home medications FEN - ADA diet PPX - Lovenox FULL CODE Dispo - inpatient for above Justifications for Admission General Conditions Other justification for admit: Diabetic leg wounds Other Justification KELLEN OCHOA MD Aug 13, 2021 18:24
[2021-08-13] MEDS ORDERED: PIP/TAZO PER PHARMACY MC PRN (19:00)
[2021-08-13] MEDS: PIPERACILLIN/TAZOBACTAM 3.375 GM in IV NORMAL SALINE 50ML 50 ML IV SCH (19:10)
[2021-08-13 19:25] VITALS: BP 121/52
[2021-08-13] MEDS: HYDROcodone/APAP 5/325MG 1 TAB TABLET PO PRN (19:39)
[2021-08-13] MEDS: ATORVASTATIN CALCIUM 10 MG TABLET. PO SCH (21:29)
[2021-08-13] MEDS: ZOLPIDEM 5 MG TABLET. PO PRN (21:30)
[2021-08-13] MEDS: INSULIN GLARGINE SYRINGE. SQ SCH (21:36)
[2021-08-13 21:38] LABS: BASO # 0.1 x10^3/uL (0.0-0.2); BASO % 1 % (0-3); EOS # 0.4 x10^3/uL (0.0-0.7); EOS % 4 % (0-3); HEMATOCRIT 32.8 % (39.0-53.0); HEMOGLOBIN 10.5 g/dL (13.0-17.5); LYMPH # 1.1 x10^3/uL (1.0-4.8); LYMPH % 11 % (24-48); MEAN CORPUSCULAR HEMOGLOBIN 25 pg (25-35); MEAN CORPUSCULAR HGB CONC 32 g/dL (31-37); MEAN CORPUSCULAR VOLUME 78 fL (79-100); MONO # 0.8 x10^3/uL (0.0-1.1); MONO % 9 % (0-9); NEUT # 7.1 x10^3/uL (1.8-7.7); NEUT % 75 % (31-73); PLATELET COUNT 312 x10^3/uL (140-400); RED BLOOD COUNT 4.21 x10^6/uL (4.30-5.70); RED CELL DISTRIBUTION WIDTH 17.2 % (11.5-14.5); WHITE BLOOD COUNT 9.5 x10^3/uL (4.0-11.0)
[2021-08-13 22:00] LABS: ALBUMIN 2.6 g/dL (3.4-5.0); ALBUMIN/GLOBULIN RATIO 0.6 (1.0-1.7); C-REACTIVE PROTEIN 75.5 mg/L (0-3.3); CALCIUM 7.9 mg/dL (8.5-10.1); CREATININE 0.8 mg/dL (0.7-1.3); GFR 99.6; POTASSIUM 3.7 mmol/L (3.5-5.1); TOTAL BILIRUBIN 0.2 mg/dL (0.2-1.0); TOTAL PROTEIN 6.9 g/dL (6.4-8.2)
[2021-08-14] MEDS: PIPERACILLIN/TAZOBACTAM 3.375 GM in IV NORMAL SALINE 50ML 50 ML IV SCH ×4 (00:05→18:10)
[2021-08-14 07:00] VITALS: BP 117/55
[2021-08-14] MEDS: INSULIN LISPRO 300 UNITS/3 ML VIAL. SQ SCH ×3 (08:00→17:00)
[2021-08-14] MEDS: HYDROcodone/APAP 5/325MG 1 TAB TABLET PO PRN ×2 (08:06→12:26)
--- NOTE | 2021-08-14 09:05 | PDOC1 ---
History and Physical Date of Admission Date of Admission DATE: 08/14/21 TIME: 08:53 Identification/Chief Complaint Chief Complaint Cellulitis Source Source: Chart review, Patient History of Present Illness History of Present Illness Patient is a 56 yo male with PMHx DM2, PVD, HLD, chronic diabetic leg wounds, morbid obesity, who presents as a direct admit from wound clinic for concerns of non-healing diabetic leg wounds and cellulitis. He is followed in wound care clinic by Dr. Durham. I spoke with Dr. Durham personally who informed me that a recent lower arterial duplex with FIDEL (07/15/21) showed worsened bilateral peripheral artery disease in both lower extremities. He has not been on any recent antibiotics, but was seen by Dr. Durham today who felt inpatient admission was warranted due to extent of cellulitis and non-healing leg wounds. Labs on admission showed WBC 9.8, albumin 2.6, CRP 75. Patient reports associated clear yellow drainage, but no purulence. He denies any fever, chills, nausea, or vomiting. Will admit for further medical management. Past Medical History Cardiovascular: HTN, Hyperlipidemia Endocrine: Diabetes, Other Past Surgical History Past Surgical History: No pertinent history Family History Family History: Diabetes, Obesity Social History Smoke: No ALCOHOL: none Drugs: None Current Medications Current Medications Current Medications Acetaminophen (Tylenol) 650 mg PRN Q6HRS PRN PO MILD PAIN / TEMP > 100.3'F; Start 08/13/21 at 18:00; Status Cancel Aspirin (Tomy Aspirin) 325 mg DAILY PO ; Start 08/14/21 at 09:00 Atorvastatin Calcium (Lipitor) 10 mg QHS PO Last administered on 08/13/21at 21 :29; Start 08/13/21 at 21:00 Insulin Glargine (Lantus Syringe) 10 unit QHS SQ Last administered on 08/13/21at 21:36; Start 08/13/21 at 21:00 Insulin Human Lispro (HumaLOG) 3 units TIDWMEALS SQ ; Start 08/14/21 at 08:00 Dextrose (Dextrose 50%-Water Syringe) 12.5 gm PRN Q15MIN PRN IV SEE COMMENTS; Start 08/13/21 at 18:00 Ondansetron HCl (Zofran) 4 mg PRN Q6HRS PRN IVP NAUSEA/VOMITING; Start 08/13/21 at 18:00 Al Hydroxide/Mg Hydroxide (Mylanta Plus Xs) 30 ml PRN Q3HRS PRN PO HEARTBURN / GAS; Start 08/13/21 at 18:00 Calcium Carbonate/ Glycine (Tums) 500 mg PRN Q3HRS PRN PO UPSET STOMACH; Start 08/13/21 at 18:00 Zolpidem Tartrate (Ambien) 5 mg PRN QHS PRN PO INSOMNIA, MAY REPEAT IN 1HR Last administered on 08/13/21at 21:30; Start 08/13/21 at 18:00 Acetaminophen/ Hydrocodone Bitart (Lortab 5/325) 1 tab PRN Q4HRS PRN PO MILD PAIN 1-3 Last administered on 08/14/21at 08:06; Start 08/13/21 at 18:00 Acetaminophen (Tylenol) 650 mg PRN Q6HRS PRN PO Headaches, Temp > 101.5F; Start 08/13/21 at 18:00 Magnesium Hydroxide (Milk Of Magnesia) 2,400 mg PRN Q12HR PRN PO CONSTIPATION; Start 08/13/21 at 18:00 Enoxaparin Sodium (Lovenox 60mg Syringe) 60 mg Q12HR SQ Last administered on 08/13/21at 21:29; Start 08/13/21 at 21:00 Piperacillin Sod/ Tazobactam Sod (Zosyn Per Pharmacy) 1 each PRN DAILY PRN MC SEE COMMENTS; Start 08/13/21 at 19:00 Piperacillin Sod/ Tazobactam Sod 3.375 gm/Sodium Chloride 50 ml @ 100 mls/hr Q6HRS IV Last administered on 08/14/21at 05:22; Start 08/13/21 at 19:00 Active Scripts Active Metformin Hcl 1,000 Mg Tablet 1,000 Mg PO BIDAC Tylenol (Acetaminophen) 325 Mg Tablet 650 Mg PO PRN Q6HRS PRN Reported Aspirin 325 Mg Tablet 325 Mg PO DAILY Lipitor (Atorvastatin Calcium) 10 Mg Tablet 1 Tab PO QHS Allergies Allergies: Coded Allergies: diphenhydramine (Verified Allergy, Intermediate, 03/27/15) sulfamethoxazole (Verified Allergy, Intermediate, 08/13/21) trimethoprim (Verified Allergy, Intermediate, 08/13/21) ROS Review of System GENERAL: No history of weight change, weakness or fevers. SKIN: No bruising, hair changes or rashes. EYES: No blurred, double or loss of vision. NOSE AND THROAT: No history of nosebleeds, hoarseness or sore throat. HEART: Denies chest pain, denies palpitations. LUNGS: Denies cough, hemoptysis, wheezing or shortness of breath. GASTROINTESTINAL: Denies nausea, vomiting, abdominal pain. GENITOURINARY: Urinary frequency and urgency. Denies dysuria or hematuria. NEUROLOGIC: Denies history of numbness, tingling, tremor or weakness. PSYCHIATRIC: Denies anxiety, denies depression. ENDOCRINE: No history of heat or cold intolerance, polyuria or polydipsia. EXTREMITIES: Bilateral lower extremity erythema. Denies muscle weakness, joint pain, pain on walking or stiffness. Physical Exam Physical Exam General: Alert, Oriented X3, Cooperative, No acute distress. Morbidly obese. HEENT: PERRLA, EOMI Lungs: Decreased breath sounds bilaterally, normal air movement Heart: RRR, no murmurs Cardiovascular: S1, S2 Abdomen: Normal bowel sounds, Soft, No tenderness. Obese abdomen. Extremities: Tense edema to bilateral lower legs. No clubbing, No cyanosis Skin: ~11cm area superficial ulceration to right lower extremity with surrounding. Left lower extremity with multiple chronic appearing leg wounds with trophic changes, with moderate surrounding erythema.. No rashes. Neuro: Normal speech, Normal tone, Sensation intact Psych/Mental Status: Mental status NL, Mood NL Vitals Vitals Vital Signs Date Time Temp Pulse Resp B/P (MAP) Pulse Ox O2 Delivery O2 Flow Rate FiO2 08/14/21 07:00 98.4 84 22 117/55 (75) 93 Room Air 98.4 Labs Labs Laboratory Tests Test 08/13/21 20:51 08/13/21 21:00 08/14/21 07:32 Glucose (Fingerstick) 151 mg/dL (70-99) 140 mg/dL (70-99) White Blood Count 9.5 x10^3/uL (4.0-11.0) Red Blood Count 4.21 x10^6/uL (4.30-5.70) Hemoglobin 10.5 g/dL (13.0-17.5) Hematocrit 32.8 % (39.0-53.0) Mean Corpuscular Volume 78 fL (79-100) Mean Corpuscular Hemoglobin 25 pg (25-35) Mean Corpuscular Hemoglobin Concent 32 g/dL (31-37) Red Cell Distribution Width 17.2 % (11.5-14.5) Platelet Count 312 x10^3/uL (140-400) Neutrophils (%) (Auto) 75 % (31-73) Lymphocytes (%) (Auto) 11 % (24-48) Monocytes (%) (Auto) 9 % (0-9) Eosinophils (%) (Auto) 4 % (0-3) Basophils (%) (Auto) 1 % (0-3) Neutrophils # (Auto) 7.1 x10^3/uL (1.8-7.7) Lymphocytes # (Auto) 1.1 x10^3/uL (1.0-4.8) Monocytes # (Auto) 0.8 x10^3/uL (0.0-1.1) Eosinophils # (Auto) 0.4 x10^3/uL (0.0-0.7) Basophils # (Auto) 0.1 x10^3/uL (0.0-0.2) Sodium Level 139 mmol/L (136-145) Potassium Level 3.7 mmol/L (3.5-5.1) Chloride Level 103 mmol/L (98-107) Carbon Dioxide Level 28 mmol/L (21-32) Anion Gap 8 (6-14) Blood Urea Nitrogen 16 mg/dL (8-26) Creatinine 0.8 mg/dL (0.7-1.3) Estimated GFR (Cockcroft-Gault) 99.6 BUN/Creatinine Ratio 20 (6-20) Glucose Level 158 mg/dL (70-99) Lactic Acid Level 0.7 mmol/L (0.4-2.0) Calcium Level 7.9 mg/dL (8.5-10.1) Total Bilirubin 0.2 mg/dL (0.2-1.0) Aspartate Amino Transf (AST/SGOT) 16 U/L (15-37) Alanine Aminotransferase (ALT/SGPT) 19 U/L (16-63) Alkaline Phosphatase 128 U/L (46-116) C-Reactive Protein, Quantitative 75.5 mg/L (0-3.3) Total Protein 6.9 g/dL (6.4-8.2) Albumin 2.6 g/dL (3.4-5.0) Albumin/Globulin Ratio 0.6 (1.0-1.7) Laboratory Tests Test 08/13/21 20:51 08/13/21 21:00 08/14/21 07:32 Glucose (Fingerstick) 151 mg/dL (70-99) 140 mg/dL (70-99) White Blood Count 9.5 x10^3/uL (4.0-11.0) Red Blood Count 4.21 x10^6/uL (4.30-5.70) Hemoglobin 10.5 g/dL (13.0-17.5) Hematocrit 32.8 % (39.0-53.0) Mean Corpuscular Volume 78 fL (79-100) Mean Corpuscular Hemoglobin 25 pg (25-35) Mean Corpuscular Hemoglobin Concent 32 g/dL (31-37) Red Cell Distribution Width 17.2 % (11.5-14.5) Platelet Count 312 x10^3/uL (140-400) Neutrophils (%) (Auto) 75 % (31-73) Lymphocytes (%) (Auto) 11 % (24-48) Monocytes (%) (Auto) 9 % (0-9) Eosinophils (%) (Auto) 4 % (0-3) Basophils (%) (Auto) 1 % (0-3) Neutrophils # (Auto) 7.1 x10^3/uL (1.8-7.7) Lymphocytes # (Auto) 1.1 x10^3/uL (1.0-4.8) Monocytes # (Auto) 0.8 x10^3/uL (0.0-1.1) Eosinophils # (Auto) 0.4 x10^3/uL (0.0-0.7) Basophils # (Auto) 0.1 x10^3/uL (0.0-0.2) Sodium Level 139 mmol/L (136-145) Potassium Level 3.7 mmol/L (3.5-5.1) Chloride Level 103 mmol/L (98-107) Carbon Dioxide Level 28 mmol/L (21-32) Anion Gap 8 (6-14) Blood Urea Nitrogen 16 mg/dL (8-26) Creatinine 0.8 mg/dL (0.7-1.3) Estimated GFR (Cockcroft-Gault) 99.6 BUN/Creatinine Ratio 20 (6-20) Glucose Level 158 mg/dL (70-99) Lactic Acid Level 0.7 mmol/L (0.4-2.0) Calcium Level 7.9 mg/dL (8.5-10.1) Total Bilirubin 0.2 mg/dL (0.2-1.0) Aspartate Amino Transf (AST/SGOT) 16 U/L (15-37) Alanine Aminotransferase (ALT/SGPT) 19 U/L (16-63) Alkaline Phosphatase 128 U/L (46-116) C-Reactive Protein, Quantitative 75.5 mg/L (0-3.3) Total Protein 6.9 g/dL (6.4-8.2) Albumin 2.6 g/dL (3.4-5.0) Albumin/Globulin Ratio 0.6 (1.0-1.7) Images Images [facility] [address] [place], [place] [id number] IMAGING REPORT Signed PATIENT: BLESSING YARBROUGH ACCOUNT: [id number] : 1965 LOCATION: US AGE: 56 SEX: M EXAM STATUS: REG CLI ORD. PHYSICIAN: ROBERT DURHAM MD REASON: NON-HEALING ULCERS BILAT PROCEDURE: DUPLEX LOWER EXTREMITY BILAT EXAM: Lower extremity arterial duplex ultrasound with ankle-brachial indices (FIDEL). History: Bilateral nonhealing ulcers Comparison: None. Technique: Grayscale, color, and spectral Doppler ultrasound images of the lower extremity arteries. Pressure readings were obtained for FIDEL. Findings: Right brachial pressure is 135 mmHg. Left brachial pressure 123 mmHg. Posterior tibial and dorsalis pedis arteries were noncompressible bilaterally. Unable to obtain FIDEL. Peak systolic velocities (cm/s) and waveforms in the lower extremities: Right: Common femoral artery: 169, triphasic Profunda femoris artery: 114, biphasic Proximal superficial femoral artery: 131, monophasic Mid superficial femoral artery: 122, monophasic Distal superficial femoral artery: 84, monophasic Popliteal artery: 141, monophasic Posterior tibial artery: 156 proximally, 147 distally, monophasic Peroneal artery: 17, monophasic Anterior tibial artery: 88, monophasic Dorsalis pedis artery: 128, monophasic Left: Common femoral artery: 153, monophasic Profunda femoris artery: 99, biphasic Proximal superficial femoral artery: 203, monophasic Mid superficial femoral artery: 136, triphasic Distal superficial femoral artery: 119, monophasic Popliteal artery: 126, monophasic Posterior tibial artery: 107 proximal, 126 distally, monophasic Peroneal artery: 117, monophasic Anterior tibial artery: 137, monophasic Dorsalis pedis artery: 168, monophasic IMPRESSION: 1. Worsened bilateral peripheral arterial disease with monophasic waveforms now throughout most of both lower extremities. 2. Mildly elevated peak systolic velocity in the proximal left superficial femoral artery may indicate focal stenosis. 3. Unable to obtain ABIs due to noncompressible posterior tibial and dorsalis pedis arteries.. 4. Large abnormal lymph node in the right groin measuring 4.[address] of the abdomen and pelvis to further evaluate. VTE Prophylaxis Ordered VTE Prophylaxis Devices: No VTE Pharmacological Prophylaxi: Yes Assessment/Plan Assessment/Plan Diabetic leg wounds Bilateral lower extremity cellulitis Peripheral vascular disease DM2 HLD Morbid obesity Plan: Will place consult to vascular surgery Consult to Dr. Durham Will consult wound care nurse Blood cultures pending Basal/prandial insulin. Hemoglobin A1c pending. Will initiate treatment with Zosyn Resume home medications FEN - ADA diet PPX - Lovenox FULL CODE Dispo - inpatient for above Justifications for Admission General Conditions Other justification for admit: Diabetic leg wounds Other Justification KELLEN OCHOA MD Aug 14, 2021 09:05
[2021-08-14] MEDS: ASPIRIN 325 MG TABLET PO SCH (09:16)
[2021-08-14 11:00] VITALS: BP 122/58
--- NOTE | 2021-08-14 12:07 | PDOC ---
Provider Note Date of Service: DATE: 08/14/21 TIME: 12:04 Provider Note (Please see full dictated note.) He is a 56-year-old morbidly obese male with long history of bilateral lower leg ulcers. He has been followed through the wound care center. He states that these ulcers have been present for 10 years. Arterial testing showed good arterial flow to both lower extremities. He has deep subcutaneous ulcer on the left lateral lower leg as well as circumferential area of skin breakdown on the right lower leg both consistent with venous stasis ulcers. He has hyperpigmentation and other skin changes consistent with venous stasis. Would continue local wound care with either Aquacel Ag or Xeroform with leg elevation and external compression. He may benefit from a multilayer compression dressing as an outpatient. He would likely benefit from comprehensive venous duplex study to evaluate for venous insufficiency. He may be amenable to venous ablation if he has significant superficial venous insufficiency. This procedure is not done as an inpatient here. He may continue his evaluation as an outpatient once acute exacerbation improves. Stressed the importance of weight loss to assist with his chronic venous insufficiency in addition to leg elevation and external compression. Justifications for Admission General Conditions Other justification for admit: Diabetic leg wounds Other Justification MAYI HASTINGS MD Aug 14, 2021 12:07
[2021-08-14] MEDS: HYDROcodone/APAP 10/325 1 TAB TABLET PO PRN ×2 (14:33→21:07)
[2021-08-14 15:00] VITALS: BP 109/52
[2021-08-14 19:00] VITALS: BP 130/68
--- NOTE | 2021-08-14 19:19 | CONS ---
DATE OF CONSULTATION: 08/14/2021 CHIEF COMPLAINT: Bilateral leg ulcers. HISTORY OF PRESENT ILLNESS: The patient is a morbidly obese 56-year-old male with hypertension, hyperlipidemia, and diabetes, who presents with long history of bilateral leg ulcers. He states that these have been present for 10 years. He has intermittently followed through the [facility]. He has done some local wound care. He states that he intermittently wears compression socks. He denies any previous use of graduated compression pumps. He stated that he previously tried compression wraps, but had restless legs limiting their use. Recent arterial study showed good arterial waveforms throughout the bilateral lower extremities. His ankle vessels were noncompressible, likely due to medial calcification. He had a venous duplex through [facility] in 2014 that showed no evidence of left leg venous thrombosis. I do not see any recent venous testing. PAST MEDICAL HISTORY: 1. Diabetes. 2. Hypertension. 3. Hyperlipidemia. 4. Obesity. PAST SURGICAL HISTORY: None. FAMILY HISTORY: Significant for diabetes and obesity. SOCIAL HISTORY: He denies any smoking or alcohol use. MEDICATIONS: Prior to admission include metformin, aspirin, Lipitor and Tylenol, although it is unclear if he was taking aspirin and Lipitor. He is started on Zosyn in the hospital as well as insulin. ALLERGIES: INCLUDE DIPHENHYDRAMINE, SULFAMETHOXAZOLE, AND TRIMETHOPRIM. REVIEW OF SYSTEMS: No recent fevers, chills, chest pain, or shortness of breath. He notes no significant weight changes over the last few years. Denies any unilateral weakness/numbness, vision loss, speech changes or other lateralizing TIA or stroke symptoms. No dysuria or hematuria. No cough or shortness of breath. Other 14-point review of system was unremarkable except as noted previously with regards to his lower extremity ulcers. PHYSICAL EXAMINATION: GENERAL: This is an obese male in no acute distress. VITAL SIGNS: Temperature 98.4, pulse 75, blood pressure 122/58, respirations 22. NECK: Supple, no lymphadenopathy. RESPIRATIONS: Nonlabored, although he is mainly mouth breathing. CARDIOVASCULAR: Regular rhythm. ABDOMEN: Obese, soft, nontender, nondistended, no palpable masses. EXTREMITIES: He has palpable radial and pedal pulses bilaterally. He has moderate bilateral lower extremity edema with hyperpigmentation and skin thickening in both legs consistent with lipodermatosclerosis. There was a deep subcutaneous ulcer on the anterior and lateral aspect of the left lower leg with minimal surrounding erythema at this time. No areas of skin breakdown on his feet. He has circumferential area of skin breakdown on the right lower leg with a smaller area of deeper subcutaneous ulcer. Both lower leg wounds are consistent with chronic venous insufficiency ulcers. LABORATORY DATA: Significant for white blood cell 9.5, hemoglobin 10.5, platelet count 312. Sodium 139, potassium 3.7, BUN 16, creatinine 0.8, glucose 158. Arterial and venous ultrasounds as above. IMPRESSION: 1. Bilateral lower extremity venous insufficiency with ulcers. 2. Morbid obesity. 3. Diabetes. 4. Hypertension. 5. Hyperlipidemia. RECOMMENDATION: 1. He has good arterial flow to both feet. He should have adequate arterial supply to facilitate healing. 2. Continue local wound care. He has a Xeroform gauze over the wounds. I have changed them to Aquacel AG today with Tubigrip stockings with overlying Antony wraps to get increased compression. I stressed the importance of leg elevation to help decompress his legs. 3. He may benefit from multilayer compressive dressing to help facilitate healing of these lower leg wounds. He also may benefit from graduated compression pumps to also help with healing. 4. It sounds like he may have had previous evaluation for venous insufficiency, but he did not know timing and where this was performed. He would likely benefit from outpatient comprehensive venous duplex scan to evaluate for venous insufficiency. If he has significant venous insufficiency in the absence of deep venous occlusion, he may be amenable to venous ablation to help with healing of his ulcers. These procedures are not done as an inpatient. OLIVE/JUDSON/OSMANY DR: Lety TID: [id number] CC: Longoria MD
[2021-08-14] MEDS: LACTOBACILLUS RHAMNOSUS GG 1 CAPSULE. PO SCH (21:01)
[2021-08-14] MEDS: ATORVASTATIN CALCIUM 10 MG TABLET. PO SCH (21:01)
[2021-08-14] MEDS: ZOLPIDEM 5 MG TABLET. PO PRN (21:02)
[2021-08-14] MEDS: INSULIN GLARGINE SYRINGE. SQ SCH (21:29)
[2021-08-15] MEDS: PIPERACILLIN/TAZOBACTAM 3.375 GM in IV NORMAL SALINE 50ML 50 ML IV SCH ×4 (05:52→18:00)
[2021-08-15 07:00] VITALS: BP 125/64
[2021-08-15 07:59] LABS: BASO # 0.1 x10^3/uL (0.0-0.2); BASO % 1 % (0-3); EOS # 0.3 x10^3/uL (0.0-0.7); EOS % 4 % (0-3); HEMATOCRIT 33.1 % (39.0-53.0); HEMOGLOBIN 10.2 g/dL (13.0-17.5); LYMPH # 1.2 x10^3/uL (1.0-4.8); LYMPH % 17 % (24-48); MEAN CORPUSCULAR HEMOGLOBIN 24 pg (25-35); MEAN CORPUSCULAR HGB CONC 31 g/dL (31-37); MEAN CORPUSCULAR VOLUME 79 fL (79-100); MONO # 0.6 x10^3/uL (0.0-1.1); MONO % 8 % (0-9); NEUT # 5.1 x10^3/uL (1.8-7.7); NEUT % 70 % (31-73); PLATELET COUNT 302 x10^3/uL (140-400); WHITE BLOOD COUNT 7.2 x10^3/uL (4.0-11.0)
[2021-08-15 08:26] LABS: CALCIUM 8.3 mg/dL (8.5-10.1); CREATININE 0.8 mg/dL (0.7-1.3); GFR 99.6; POTASSIUM 3.9 mmol/L (3.5-5.1)
[2021-08-15] MEDS: ASPIRIN 325 MG TABLET PO SCH (09:11)
[2021-08-15] MEDS: LACTOBACILLUS RHAMNOSUS GG 1 CAPSULE. PO SCH ×2 (09:11→21:27)
[2021-08-15] MEDS: HYDROcodone/APAP 10/325 1 TAB TABLET PO PRN ×2 (09:17→13:50)
[2021-08-15] MEDS: INSULIN LISPRO 300 UNITS/3 ML VIAL. SQ SCH ×3 (09:18→17:00)
--- NOTE | 2021-08-15 09:35 | PDOC ---
[employer] PROGRESS NOTE Date of Service DOS: DATE: 08/15/21 TIME: 09:22 Chief Complaint Chief Complaint Diabetic leg wounds Bilateral lower extremity cellulitis Peripheral vascular disease DM2 HLD Morbid obesity Plan: Will place consult to vascular surgery Consult to Dr. Durham Will consult wound care nurse Blood cultures pending Basal/prandial insulin. Hemoglobin A1c pending. Will initiate treatment with Zosyn Resume home medications FEN - ADA diet PPX - Lovenox FULL CODE Dispo - inpatient for above History of Present Illness History of Present Illness Patient is a 56 yo male with PMHx DM2, PVD, HLD, chronic diabetic leg wounds, morbid obesity, who presents as a direct admit from wound clinic for concerns of non-healing diabetic leg wounds and cellulitis. He is followed in wound care clinic by Dr. Durham. I spoke with Dr. Durham personally who informed me that a recent lower arterial duplex with FIDEL (07/15/21) showed worsened bilateral peripheral artery disease in both lower extremities. He has not been on any recent antibiotics, but was seen by Dr. Durham today who felt inpatient admission was warranted due to extent of cellulitis and non-healing leg wounds. Labs on admission showed WBC 9.8, albumin 2.6, CRP 75. Patient reports associated clear yellow drainage, but no purulence. He denies any fever, chills, nausea, or vomiting. Will admit for further medical management. 08/15: Had significant pain with dressing changes, pain medication increased. Dr. Martel recommending compressive venous duplex study to evaluate for venous insufficiency, and possible venous ablation if significant superficial venous insufficiency noted. Patient is concerned that his insurance would not pay for venous ablation. Risk his scenario he will continue with local wound care once treatment for cellulitis is improved, weekly next day or two. Blood cultures negative to date. Will continue treatment with Zosyn. Continue leg elevation and compression stockings. Stressed weight loss. Vitals/I&O Vitals/I&O: Vital Signs Date Time Temp Pulse Resp B/P (MAP) Pulse Ox O2 Delivery O2 Flow Rate FiO2 08/15/21 07:00 97.7 80 18 125/64 (84) 96 Room Air 97.7 I & O 08/14/21 08/14/21 08/15/21 15:00 23:00 07:00 Intake Total 50 ml 650 ml Output Total 200 ml Balance -150 ml 650 ml Physical Exam General: Alert, Oriented X3, Cooperative, No acute distress Heart: Regular rate Lungs: Clear Abdomen: Other (Obese abdomen) Extremities: No cyanosis Skin: Other (~11cm area superficial ulceration to right lower extremity with surrounding.; left lower extremity with multiple chronic appearing leg wounds with trophic changes, with moderate surrounding erythema) Labs Labs: Laboratory Tests Test 08/14/21 11:42 08/14/21 16:47 08/14/21 20:03 08/15/21 07:05 Glucose (Fingerstick) 136 mg/dL (70-99) 125 mg/dL (70-99) 138 mg/dL (70-99) White Blood Count 7.2 x10^3/uL (4.0-11.0) Red Blood Count 4.20 x10^6/uL (4.30-5.70) Hemoglobin 10.2 g/dL (13.0-17.5) Hematocrit 33.1 % (39.0-53.0) Mean Corpuscular Volume 79 fL (79-100) Mean Corpuscular Hemoglobin 24 pg (25-35) Mean Corpuscular Hemoglobin Concent 31 g/dL (31-37) Red Cell Distribution Width 17.0 % (11.5-14.5) Platelet Count 302 x10^3/uL (140-400) Neutrophils (%) (Auto) 70 % (31-73) Lymphocytes (%) (Auto) 17 % (24-48) Monocytes (%) (Auto) 8 % (0-9) Eosinophils (%) (Auto) 4 % (0-3) Basophils (%) (Auto) 1 % (0-3) Neutrophils # (Auto) 5.1 x10^3/uL (1.8-7.7) Lymphocytes # (Auto) 1.2 x10^3/uL (1.0-4.8) Monocytes # (Auto) 0.6 x10^3/uL (0.0-1.1) Eosinophils # (Auto) 0.3 x10^3/uL (0.0-0.7) Basophils # (Auto) 0.1 x10^3/uL (0.0-0.2) Sodium Level 136 mmol/L (136-145) Potassium Level 3.9 mmol/L (3.5-5.1) Chloride Level 101 mmol/L (98-107) Carbon Dioxide Level 29 mmol/L (21-32) Anion Gap 6 (6-14) Blood Urea Nitrogen 12 mg/dL (8-26) Creatinine 0.8 mg/dL (0.7-1.3) Estimated GFR (Cockcroft-Gault) 99.6 Glucose Level 114 mg/dL (70-99) Calcium Level 8.3 mg/dL (8.5-10.1) Test 08/15/21 07:38 Glucose (Fingerstick) 124 mg/dL (70-99) Comment Review of Relevant I have reviewed the following items norah (where applicable) has been applied. Medications: Current Medications Medications (Trade) Dose Ordered Sig/Codie Route PRN Reason Start Time Stop Time Status Last Admin Dose Admin Lactobacillus Rhamnosus (Culturelle) 1 cap BID PO 08/14/21 21:00 08/15/21 09:11 Acetaminophen/ Hydrocodone Bitart (Lortab ) 1 tab PRN Q4HRS PRN PO PAIN 08/14/21 14:30 08/15/21 09:17 Justifications for Admission General Conditions Other justification for admit: Diabetic leg wounds Other Justification KELLEN OCHOA MD Aug 15, 2021 09:35
[2021-08-15 11:00] VITALS: BP 129/66
[2021-08-15 15:00] VITALS: BP 143/74
--- NOTE | 2021-08-15 16:09 | NUR ---
Pt c/o severe pain with dressing changes, spoke with Dr. Posada and received new order to give Oxycodone 1 prior to or after dressing change to BLE
[2021-08-15] MEDS: oxyCODONE/APAP 10/325 1 TAB TABLET PO PRN (16:21)
[2021-08-15 19:00] VITALS: BP 138/66
[2021-08-15] MEDS: ATORVASTATIN CALCIUM 10 MG TABLET. PO SCH (21:27)
[2021-08-15] MEDS: INSULIN GLARGINE SYRINGE. SQ SCH (21:33)
[2021-08-16] MEDS: PIPERACILLIN/TAZOBACTAM 3.375 GM in IV NORMAL SALINE 50ML 50 ML IV SCH ×4 (00:11→17:57)
[2021-08-16] MEDS: HYDROcodone/APAP 10/325 1 TAB TABLET PO PRN ×3 (00:25→16:32)
[2021-08-16 01:08] LABS: HEMOGLOBIN A1C 7.2 % (4.8-5.6)
[2021-08-16 07:00] VITALS: BP 122/70
[2021-08-16 07:51] LABS: BASO # 0.1 x10^3/uL (0.0-0.2); BASO % 1 % (0-3); EOS # 0.2 x10^3/uL (0.0-0.7); EOS % 3 % (0-3); HEMATOCRIT 33.4 % (39.0-53.0); HEMOGLOBIN 10.2 g/dL (13.0-17.5); LYMPH # 1.2 x10^3/uL (1.0-4.8); LYMPH % 17 % (24-48); MEAN CORPUSCULAR HEMOGLOBIN 24 pg (25-35); MEAN CORPUSCULAR HGB CONC 31 g/dL (31-37); MEAN CORPUSCULAR VOLUME 79 fL (79-100); MONO # 0.6 x10^3/uL (0.0-1.1); MONO % 8 % (0-9); NEUT # 5.2 x10^3/uL (1.8-7.7); NEUT % 72 % (31-73); PLATELET COUNT 318 x10^3/uL (140-400); RED BLOOD COUNT 4.25 x10^6/uL (4.30-5.70); WHITE BLOOD COUNT 7.3 x10^3/uL (4.0-11.0)
[2021-08-16] MEDS: INSULIN LISPRO 300 UNITS/3 ML VIAL. SQ SCH ×3 (08:00→18:07)
[2021-08-16 08:16] LABS: CALCIUM 8.6 mg/dL (8.5-10.1); CREATININE 0.8 mg/dL (0.7-1.3); GFR 99.6
[2021-08-16] MEDS: ASPIRIN 325 MG TABLET PO SCH (08:57)
[2021-08-16] MEDS: LACTOBACILLUS RHAMNOSUS GG 1 CAPSULE. PO SCH ×2 (08:57→21:08)
--- NOTE | 2021-08-16 10:32 | PDOC ---
PROGRESS NOTES Date of Service DATE: 08/16/21 TIME: 10:28 Subjective Subjective Patient has no complaints. He does complain of pain with dressing manipulation. Objective Objective Vital Signs Date Time Temp Pulse Resp B/P (MAP) Pulse Ox O2 Delivery O2 Flow Rate FiO2 08/16/21 09:08 Room Air 08/16/21 07:00 97.7 64 18 122/70 (87) 91 97.7 Intake and Output 08/16/21 07:00 Intake Total 170 ml Output Total 800 ml Balance -630 ml Intake Oral 120 ml IV Total 50 ml Output Urine Total 800 ml # Voids 1 Physical Exam Heart: Regular rate General: Alert, Oriented X3 Lungs: Normal air movement Skin: Other (dressings intact bilateral lower extremities, moderate drainage. ) Plan Plan of Care Venous insufficiency with venous stasis ulcers bilateral lower extremities. Continue local wound care with either Aquacel Ag or Xeroform with leg elevation and external compression. He may benefit from a multilayer compression dressing as an outpatient. He would likely benefit from comprehensive venous duplex study to evaluate for venous insufficiency. He may be amenable to venous ablation if he has significant superficial venous insufficiency. This procedure is not done as an inpatient here. He may continue his evaluation as an outpatient once acute exacerbation improves. Stressed the importance of weight loss to assist with his chronic venous insufficiency in addition to leg elevation and external compression. Comment Review of Relevant I have reviewed the following items norah (where applicable) has been applied. Labs Laboratory Tests Test 08/14/21 11:42 08/14/21 16:47 08/14/21 20:03 08/15/21 07:05 Glucose (Fingerstick) 136 mg/dL (70-99) 125 mg/dL (70-99) 138 mg/dL (70-99) White Blood Count 7.2 x10^3/uL (4.0-11.0) Red Blood Count 4.20 x10^6/uL (4.30-5.70) Hemoglobin 10.2 g/dL (13.0-17.5) Hematocrit 33.1 % (39.0-53.0) Mean Corpuscular Volume 79 fL (79-100) Mean Corpuscular Hemoglobin 24 pg (25-35) Mean Corpuscular Hemoglobin Concent 31 g/dL (31-37) Red Cell Distribution Width 17.0 % (11.5-14.5) Platelet Count 302 x10^3/uL (140-400) Neutrophils (%) (Auto) 70 % (31-73) Lymphocytes (%) (Auto) 17 % (24-48) Monocytes (%) (Auto) 8 % (0-9) Eosinophils (%) (Auto) 4 % (0-3) Basophils (%) (Auto) 1 % (0-3) Neutrophils # (Auto) 5.1 x10^3/uL (1.8-7.7) Lymphocytes # (Auto) 1.2 x10^3/uL (1.0-4.8) Monocytes # (Auto) 0.6 x10^3/uL (0.0-1.1) Eosinophils # (Auto) 0.3 x10^3/uL (0.0-0.7) Basophils # (Auto) 0.1 x10^3/uL (0.0-0.2) Sodium Level 136 mmol/L (136-145) Potassium Level 3.9 mmol/L (3.5-5.1) Chloride Level 101 mmol/L (98-107) Carbon Dioxide Level 29 mmol/L (21-32) Anion Gap 6 (6-14) Blood Urea Nitrogen 12 mg/dL (8-26) Creatinine 0.8 mg/dL (0.7-1.3) Estimated GFR (Cockcroft-Gault) 99.6 Glucose Level 114 mg/dL (70-99) Calcium Level 8.3 mg/dL (8.5-10.1) Test 08/15/21 07:38 08/15/21 11:59 08/15/21 16:49 08/15/21 20:16 Glucose (Fingerstick) 124 mg/dL (70-99) 121 mg/dL (70-99) 116 mg/dL (70-99) 200 mg/dL (70-99) Test 08/16/21 06:50 08/16/21 08:22 White Blood Count 7.3 x10^3/uL (4.0-11.0) Red Blood Count 4.25 x10^6/uL (4.30-5.70) Hemoglobin 10.2 g/dL (13.0-17.5) Hematocrit 33.4 % (39.0-53.0) Mean Corpuscular Volume 79 fL (79-100) Mean Corpuscular Hemoglobin 24 pg (25-35) Mean Corpuscular Hemoglobin Concent 31 g/dL (31-37) Red Cell Distribution Width 17.0 % (11.5-14.5) Platelet Count 318 x10^3/uL (140-400) Neutrophils (%) (Auto) 72 % (31-73) Lymphocytes (%) (Auto) 17 % (24-48) Monocytes (%) (Auto) 8 % (0-9) Eosinophils (%) (Auto) 3 % (0-3) Basophils (%) (Auto) 1 % (0-3) Neutrophils # (Auto) 5.2 x10^3/uL (1.8-7.7) Lymphocytes # (Auto) 1.2 x10^3/uL (1.0-4.8) Monocytes # (Auto) 0.6 x10^3/uL (0.0-1.1) Eosinophils # (Auto) 0.2 x10^3/uL (0.0-0.7) Basophils # (Auto) 0.1 x10^3/uL (0.0-0.2) Sodium Level 137 mmol/L (136-145) Potassium Level 4.0 mmol/L (3.5-5.1) Chloride Level 100 mmol/L (98-107) Carbon Dioxide Level 29 mmol/L (21-32) Anion Gap 8 (6-14) Blood Urea Nitrogen 10 mg/dL (8-26) Creatinine 0.8 mg/dL (0.7-1.3) Estimated GFR (Cockcroft-Gault) 99.6 Glucose Level 109 mg/dL (70-99) Calcium Level 8.6 mg/dL (8.5-10.1) Glucose (Fingerstick) 104 mg/dL (70-99) Laboratory Tests Test 08/15/21 11:59 08/15/21 16:49 08/15/21 20:16 08/16/21 06:50 Glucose (Fingerstick) 121 mg/dL (70-99) 116 mg/dL (70-99) 200 mg/dL (70-99) White Blood Count 7.3 x10^3/uL (4.0-11.0) Red Blood Count 4.25 x10^6/uL (4.30-5.70) Hemoglobin 10.2 g/dL (13.0-17.5) Hematocrit 33.4 % (39.0-53.0) Mean Corpuscular Volume 79 fL (79-100) Mean Corpuscular Hemoglobin 24 pg (25-35) Mean Corpuscular Hemoglobin Concent 31 g/dL (31-37) Red Cell Distribution Width 17.0 % (11.5-14.5) Platelet Count 318 x10^3/uL (140-400) Neutrophils (%) (Auto) 72 % (31-73) Lymphocytes (%) (Auto) 17 % (24-48) Monocytes (%) (Auto) 8 % (0-9) Eosinophils (%) (Auto) 3 % (0-3) Basophils (%) (Auto) 1 % (0-3) Neutrophils # (Auto) 5.2 x10^3/uL (1.8-7.7) Lymphocytes # (Auto) 1.2 x10^3/uL (1.0-4.8) Monocytes # (Auto) 0.6 x10^3/uL (0.0-1.1) Eosinophils # (Auto) 0.2 x10^3/uL (0.0-0.7) Basophils # (Auto) 0.1 x10^3/uL (0.0-0.2) Sodium Level 137 mmol/L (136-145) Potassium Level 4.0 mmol/L (3.5-5.1) Chloride Level 100 mmol/L (98-107) Carbon Dioxide Level 29 mmol/L (21-32) Anion Gap 8 (6-14) Blood Urea Nitrogen 10 mg/dL (8-26) Creatinine 0.8 mg/dL (0.7-1.3) Estimated GFR (Cockcroft-Gault) 99.6 Glucose Level 109 mg/dL (70-99) Calcium Level 8.6 mg/dL (8.5-10.1) Test 08/16/21 08:22 Glucose (Fingerstick) 104 mg/dL (70-99) Microbiology 08/13/21 Blood Culture - Preliminary, Resulted NO GROWTH AFTER 2 DAYS Medications Current Medications Acetaminophen (Tylenol) 650 mg PRN Q6HRS PRN PO MILD PAIN / TEMP > 100.3'F; Start 08/13/21 at 18:00; Status Cancel Aspirin (Tomy Aspirin) 325 mg DAILY PO Last administered on 08/16/21at 08:57; Start 08/14/21 at 09:00 Atorvastatin Calcium (Lipitor) 10 mg QHS PO Last administered on 08/15/21at 21:27; Start 08/13/21 at 21:00 Insulin Glargine (Lantus Syringe) 10 unit QHS SQ Last administered on 08/15/21at 21:33; Start 08/13/21 at 21:00 Insulin Human Lispro (HumaLOG) 3 units TIDWMEALS SQ Last administered on 08/16/21at 08:00; Start 08/14/21 at 08:00 Dextrose (Dextrose 50%-Water Syringe) 12.5 gm PRN Q15MIN PRN IV SEE COMMENTS; Start 08/13/21 at 18:00 Ondansetron HCl (Zofran) 4 mg PRN Q6HRS PRN IVP NAUSEA/VOMITING Last administered on 08/15/21at 18:03; Start 08/13/21 at 18:00 Al Hydroxide/Mg Hydroxide (Mylanta Plus Xs) 30 ml PRN Q3HRS PRN PO HEARTBURN / GAS; Start 08/13/21 at 18:00 Calcium Carbonate/ Glycine (Tums) 500 mg PRN Q3HRS PRN PO UPSET STOMACH; Start 08/13/21 at 18:00 Zolpidem Tartrate (Ambien) 5 mg PRN QHS PRN PO INSOMNIA, MAY REPEAT IN 1HR Last administered on 08/14/21at 21:02; Start 08/13/21 at 18:00 Acetaminophen/ Hydrocodone Bitart (Lortab 5/325) 1 tab PRN Q4HRS PRN PO MILD PAIN 1-3 Last administered on 08/14/21at 12:26; Start 08/13/21 at 18:00; Stop 08/14/21 at 14:23; Status DC Acetaminophen (Tylenol) 650 mg PRN Q6HRS PRN PO Headaches, Temp > 101.5F; Start 08/13/21 at 18:00 Magnesium Hydroxide (Milk Of Magnesia) 2,400 mg PRN Q12HR PRN PO CONSTIPATION; Start 08/13/21 at 18:00 Enoxaparin Sodium (Lovenox 60mg Syringe) 60 mg Q12HR SQ Last administered on 08/16/21at 08:57; Start 08/13/21 at 21:00 Piperacillin Sod/ Tazobactam Sod (Zosyn Per Pharmacy) 1 each PRN DAILY PRN MC SEE COMMENTS; Start 08/13/21 at 19:00 Piperacillin Sod/ Tazobactam Sod 3.375 gm/Sodium Chloride 50 ml @ 100 mls/hr Q6HRS IV Last administered on 08/16/21at 06:05; Start 08/13/21 at 19:00 Lactobacillus Rhamnosus (Culturelle) 1 cap BID PO Last administered on 08/16/21at 08:57; Start 08/14/21 at 21:00 Acetaminophen/ Hydrocodone Bitart (Lortab 10/325) 1 tab PRN Q4HRS PRN PO PAIN Last administered on 08/16/21at 09:08; Start 08/14/21 at 14:30 Oxycodone/ Acetaminophen (Percocet 10/325) 1 tab PRN DAILY PRN PO DRESSING CHANGES Last administered on 08/15/21at 16:21; Start 08/15/21 at 16:15 Active Scripts Active Metformin Hcl 1,000 Mg Tablet 1,000 Mg PO BIDAC Tylenol (Acetaminophen) 325 Mg Tablet 650 Mg PO PRN Q6HRS PRN Reported Aspirin 325 Mg Tablet 325 Mg PO DAILY Lipitor (Atorvastatin Calcium) 10 Mg Tablet 1 Tab PO QHS Vitals/I & O Vital Sign - Last 24 Hours 08/15/21 08/15/21 08/15/21 08/15/21 11:00 15:00 19:00 20:00 Temp 97.5 97.4 98.0 97.5 97.4 98.0 Pulse 72 70 69 Resp 18 18 20 B/P (MAP) 129/66 (87) 143/74 (97) 138/66 (90) Pulse Ox 94 95 94 O2 Delivery Room Air Room Air Room Air Room Air 08/16/21 08/16/21 08/16/21 08/16/21 00:25 00:55 07:00 09:08 Temp 97.7 97.7 Pulse 64 Resp 18 16 18 B/P (MAP) 122/70 (87) Pulse Ox 94 91 O2 Delivery Room Air Room Air Room Air Room Air Intake and Output 08/15/21 08/15/21 08/16/21 15:00 23:00 07:00 Intake Total 50 ml 120 ml Output Total 500 ml 300 ml Balance 50 ml -500 ml -180 ml Justifications for Admission General Conditions Other justification for admit: Diabetic leg wounds Other Justification CRISTOBAL UNGER APRN Aug 16, 2021 10:32
[2021-08-16 11:00] VITALS: BP 130/57
--- NOTE | 2021-08-16 12:29 | CONS ---
DATE OF CONSULTATION: 08/16/2021 REFERRING PHYSICIAN: Kyler Durham MD REASON FOR CONSULTATION: Antibiotic management for right lower extremity ulcer with secondary pseudomonas and group B strep infection. HISTORY OF PRESENT ILLNESS: A 56-year-old morbidly obese male with history of diabetes, neuropathy, hypertension, hyperlipidemia, chronic venous stasis, bilateral lower extremity ulcers, later is present for about 10 years, who has been following with the wound care center here at [facility] intermittently. He was seen recently. He had undergone some local wound care. The patient has not followed up with primary care for quite some time. 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 He was seen in wound care, Pt was on Bactrim, which caused him to have rash, which he stopped, so he has not been on any antibiotics couple of days prior to admission. He had wound cultures done, which showed pseudomonas and group B strep from the right lower extremity wound per my discussion with wound team RN. The patient is currently on Zosyn. ID consultation has been requested for antibiotic management. Today, the patient states he feels okay. He was seen by Dr. Martel, Vascular Surgery, White count was normal. Creatinine is normal. The patient denies any fevers, chills, nausea, vomiting, diarrhea, symptoms. PAST MEDICAL HISTORY: Diabetes, hypertension, hyperlipidemia, obesity, chronic venous ulcers. PAST SURGICAL HISTORY: None. SOCIAL HISTORY: Denies smoking, ETOH, or illicit drug use. Lives with mother. Works in a factory. He is on his feet the whole time. He has not been following with any primary care for a couple of years. MEDICATIONS: Zosyn. Other medications reviewed in medication list. FAMILY HISTORY: As per HPI. ALLERGIES: DIPHENHYDRAMINE, TRIMETHOPRIM AND SULFAMETHOXAZOLE LATER WITH RASH. REVIEW OF SYSTEMS: Negative except for above in HPI. PHYSICAL EXAMINATION: VITAL SIGNS: Temperature 97.7, pulse 64, respiratory rate 18, blood pressure 120/70, oxygen saturation 91% on room air. GENERAL: Alert, oriented x 3 male, lying in bed comfortably, in no acute distress. HEENT: Normocephalic, atraumatic. Anicteric. No thrush. LUNGS: Clear. HEART: S1, S2, regular rate. ABDOMEN: Soft, obese. Bowel sounds present. EXTREMITIES: Bilateral lower extremity dressings intact, venous stasis changes present. Dressing not taken down. Wound pictures noted. Bilateral lower extremity edema with hyperpigmentation, skin thickening, large deep subcutaneous ulcer on the left lower leg with minimal erythema, large 11 cm circumferential area of breakdown on the right lower leg chronic venous insufficiency ulcers, dry skin scratch craft present just beyond the dressing in both lower extremities. DERMATOLOGY: Warm, dry, multiple scratch craft present over the upper chest, bilateral upper extremities, and some over the lower extremity beyond the dressing. No purulence noted. LABORATORY DATA: CBC: WBC 7.3, hemoglobin 9.2, platelets 318. Sodium 137, potassium 4.0, chloride 100, bicarbonate 29, BUN 10, creatinine 0.8, glucose 109, calcium 8.6. C-reactive protein 75.5, hemoglobin A1c 7.2, albumin 2.6. MICRO: Blood cultures negative. Wound culture 07/2021, group B strep pseudomonas. ID and LIZZY pending at this time. IMAGING: Arterial study noted. Doppler ultrasound from 07/15 noted. IMPRESSION: 1. Bilateral lower extremity venous insufficiency ulcers. 2. Right lower extremity large ulcer with secondary superimposed superficial infection with pseudomonas and group B strep. 3. Morbid obesity. 4. Diabetes mellitus, hemoglobin A1c greater than 7.2. 5. Hypertension. 6. Hyperlipidemia. 7. ALLERGIES TO BACTRIM WITH HIVES. RECOMMENDATIONS: 1. Continue Zosyn. 2. Follow up pseudomonas MICs. 3. Elevate lower extremity. 4. Local wound care as directed. 5. Vascular recommendations noted. 6. The patient was encouraged to establish care with primary care. 7. Avoid scratching. Thank you, Dr. Durham, for consulting Infectious Disease to participate in this patient's care. If you have any questions, do not hesitate to contact me. KULDIP/MAL WHITTAKER: Serg TID: [id number] IRVIN
--- NOTE | 2021-08-16 13:10 | PDOC ---
[employer] PROGRESS NOTE Date of Service DOS: DATE: 08/16/21 TIME: 13:07 Chief Complaint Chief Complaint Diabetic leg wounds Bilateral lower extremity cellulitis Peripheral vascular disease DM2 HLD Morbid obesity Plan: Will place consult to vascular surgery Consult to Dr. Durham Will consult wound care nurse Blood cultures ngtd Basal/prandial insulin. Hemoglobin A1c 7.2 Will initiate treatment with Zosyn, continue for now Resume home medications FEN - ADA diet PPX - Lovenox FULL CODE Dispo - inpatient for above History of Present Illness History of Present Illness Patient is a 56 yo male with PMHx DM2, PVD, HLD, chronic diabetic leg wounds, morbid obesity, who presents as a direct admit from wound clinic for concerns of non-healing diabetic leg wounds and cellulitis. He is followed in wound care clinic by Dr. Durham. I spoke with Dr. Durham personally who informed me that a recent lower arterial duplex with FIDEL (07/15/21) showed worsened bilateral peripheral artery disease in both lower extremities. He has not been on any recent antibiotics, but was seen by Dr. Durham today who felt inpatient admission was warranted due to extent of cellulitis and non-healing leg wounds. Labs on admission showed WBC 9.8, albumin 2.6, CRP 75. Patient reports associated clear yellow drainage, but no purulence. He denies any fever, chills, nausea, or vomiting. Will admit for further medical management. 08/15: Had significant pain with dressing changes, pain medication increased. Dr. Martel recommending compressive venous duplex study to evaluate for venous insufficiency, and possible venous ablation if significant superficial venous insufficiency noted. Patient is concerned that his insurance would not pay for venous ablation. Risk his scenario he will continue with local wound care once treatment for cellulitis is improved, weekly next day or two. Blood cultures negative to date. Will continue treatment with Zosyn. Continue leg elevation and compression stockings. Stressed weight loss. 08/16 Patient evaluated examined at bedside. Continue antibiotics with Zosyn. Infectious disease and vascular surgery following. Continuing wound care. Blood cultures no growth today. PT OT. Vitals/I&O Vitals/I&O: Vital Signs Date Time Temp Pulse Resp B/P (MAP) Pulse Ox O2 Delivery O2 Flow Rate FiO2 08/16/21 11:00 97.5 65 18 130/57 (81) 94 Room Air 97.5 I & O 08/15/21 08/15/21 08/16/21 15:00 23:00 07:00 Intake Total 50 ml 120 ml Output Total 500 ml 300 ml Balance 50 ml -500 ml -180 ml Physical Exam General: Alert, Oriented X3, Cooperative Heart: Regular rate Lungs: Clear Abdomen: Other (Obese abdomen) Extremities: No cyanosis Skin: Other (dressings intact bilateral lower extremities, moderate drainage. ) Labs Labs: Laboratory Tests Test 08/15/21 16:49 08/15/21 20:16 08/16/21 06:50 08/16/21 08:22 Glucose (Fingerstick) 116 mg/dL (70-99) 200 mg/dL (70-99) 104 mg/dL (70-99) White Blood Count 7.3 x10^3/uL (4.0-11.0) Red Blood Count 4.25 x10^6/uL (4.30-5.70) Hemoglobin 10.2 g/dL (13.0-17.5) Hematocrit 33.4 % (39.0-53.0) Mean Corpuscular Volume 79 fL (79-100) Mean Corpuscular Hemoglobin 24 pg (25-35) Mean Corpuscular Hemoglobin Concent 31 g/dL (31-37) Red Cell Distribution Width 17.0 % (11.5-14.5) Platelet Count 318 x10^3/uL (140-400) Neutrophils (%) (Auto) 72 % (31-73) Lymphocytes (%) (Auto) 17 % (24-48) Monocytes (%) (Auto) 8 % (0-9) Eosinophils (%) (Auto) 3 % (0-3) Basophils (%) (Auto) 1 % (0-3) Neutrophils # (Auto) 5.2 x10^3/uL (1.8-7.7) Lymphocytes # (Auto) 1.2 x10^3/uL (1.0-4.8) Monocytes # (Auto) 0.6 x10^3/uL (0.0-1.1) Eosinophils # (Auto) 0.2 x10^3/uL (0.0-0.7) Basophils # (Auto) 0.1 x10^3/uL (0.0-0.2) Sodium Level 137 mmol/L (136-145) Potassium Level 4.0 mmol/L (3.5-5.1) Chloride Level 100 mmol/L (98-107) Carbon Dioxide Level 29 mmol/L (21-32) Anion Gap 8 (6-14) Blood Urea Nitrogen 10 mg/dL (8-26) Creatinine 0.8 mg/dL (0.7-1.3) Estimated GFR (Cockcroft-Gault) 99.6 Glucose Level 109 mg/dL (70-99) Calcium Level 8.6 mg/dL (8.5-10.1) Test 08/16/21 11:44 Glucose (Fingerstick) 129 mg/dL (70-99) Comment Review of Relevant I have reviewed the following items norah (where applicable) has been applied. Medications: Current Medications Medications (Trade) Dose Ordered Sig/Codie Route PRN Reason Start Time Stop Time Status Last Admin Dose Admin Oxycodone/ Acetaminophen (Percocet 10/325) 1 tab PRN DAILY PRN PO DRESSING CHANGES 08/15/21 16:15 08/15/21 16:21 Justifications for Admission General Conditions Other justification for admit: Diabetic leg wounds Other Justification PENNY MATTHEW MD Aug 16, 2021 13:10
[2021-08-16 15:00] VITALS: BP 133/69
--- NOTE | 2021-08-16 16:25 | NUR ---
Wound Care patient refused dressing change today, will return tomorrow.
--- NOTE | 2021-08-16 17:34 | NUR ---
Wound/Ostomy Care Wound Type/Assessment: Wound care follow up for bilateral lower legs VLUs, pt known to wound care team from outpatient setting, was sent to hospital on Monday from wound care center for worsening of bilateral VLUs. No other wounds noted. Bilateral leg wound cleanse, measured and redressed, pt tolerated dressing changes after having pain medications on board. Pt educated on importance of having dressing changes, elevating legs and keeping medigrips on for compression. Treatment Recommendations/Plan: Cleanse wounds with saline or wound wash and pat dry. Bilateral lower legs: cover with aquacel ag, abd and kerlix, then apply tubigrips size G. Change daily and as needed if saturated. Education provided: Lengthy education about leg elevation and compression with pt, PU prevention discussed Offloading surface/device: pillows to elevate legs Recommended Referrals/Tests: vascular surgery following Discharge Recommendations for dressings: Same as above, wound care will follow up on 08/19. Pt to follow up in [facility] after discharge as well, pt to call to make appt.
[2021-08-16 19:00] VITALS: BP 163/92
[2021-08-16] MEDS: ATORVASTATIN CALCIUM 10 MG TABLET. PO SCH (21:09)
[2021-08-16] MEDS: oxyCODONE/APAP 10/325 1 TAB TABLET PO PRN (21:09)
[2021-08-16] MEDS: INSULIN GLARGINE SYRINGE. SQ SCH (21:22)
[2021-08-16 23:00] VITALS: BP 133/64
[2021-08-17] MEDS: PIPERACILLIN/TAZOBACTAM 3.375 GM in IV NORMAL SALINE 50ML 50 ML IV SCH ×5 (00:34→23:05)
[2021-08-17 04:52] LABS: BASO # 0.1 x10^3/uL (0.0-0.2); BASO % 1 % (0-3); EOS # 0.3 x10^3/uL (0.0-0.7); EOS % 3 % (0-3); HEMATOCRIT 33.5 % (39.0-53.0); HEMOGLOBIN 10.8 g/dL (13.0-17.5); LYMPH # 1.6 x10^3/uL (1.0-4.8); LYMPH % 21 % (24-48); MEAN CORPUSCULAR HEMOGLOBIN 25 pg (25-35); MEAN CORPUSCULAR HGB CONC 32 g/dL (31-37); MEAN CORPUSCULAR VOLUME 78 fL (79-100); MONO # 0.6 x10^3/uL (0.0-1.1); MONO % 8 % (0-9); NEUT # 5.3 x10^3/uL (1.8-7.7); NEUT % 67 % (31-73); PLATELET COUNT 316 x10^3/uL (140-400); RED BLOOD COUNT 4.28 x10^6/uL (4.30-5.70); WHITE BLOOD COUNT 7.9 x10^3/uL (4.0-11.0)
[2021-08-17 05:07] LABS: CALCIUM 8.1 mg/dL (8.5-10.1); CREATININE 0.8 mg/dL (0.7-1.3); GFR 99.6
[2021-08-17 07:00] VITALS: BP 133/62
--- NOTE | 2021-08-17 08:27 | PDOC ---
Infectious Disease Note Subjective: Subjective Patient without complaints. Vital Signs: Vital Signs Vital Signs Date Time Temp Pulse Resp B/P (MAP) Pulse Ox O2 Delivery O2 Flow Rate FiO2 08/17/21 07:00 97.6 65 18 133/62 (85) 96 Room Air 97.6 Physical Exam: PHYSICAL EXAM GENERAL: Alert, oriented x 3 male, lying in bed comfortably, in no acute distress. HEENT: Normocephalic, atraumatic. Anicteric. No thrush. LUNGS: Clear. HEART: S1, S2, regular rate. ABDOMEN: Soft, obese. Bowel sounds present. EXTREMITIES: Bilateral lower extremity dressings intact, venous stasis changes present. Dressing not taken down. Wound pictures noted. Bilateral lower extremity edema with hyperpigmentation, skin thickening, large deep subcutaneous ulcer on the left lower leg with minimal erythema, large 11 cm circumferential area of breakdown on the right lower leg chronic venous insufficiency ulcers, dry skin scratch craft present just beyond the dressing in both lower extremities. DERMATOLOGY: Warm, dry, multiple scratch craft present over the upper chest, bilateral upper extremities, and some over the lower extremity beyond the dressing. No purulence noted. Medications: Inpatient Meds: Medications reviewed. Labs: Lab Laboratory Tests Test 08/16/21 11:44 08/16/21 17:17 08/16/21 21:16 08/17/21 03:50 Glucose (Fingerstick) 129 mg/dL (70-99) 115 mg/dL (70-99) 154 mg/dL (70-99) White Blood Count 7.9 x10^3/uL (4.0-11.0) Red Blood Count 4.28 x10^6/uL (4.30-5.70) Hemoglobin 10.8 g/dL (13.0-17.5) Hematocrit 33.5 % (39.0-53.0) Mean Corpuscular Volume 78 fL (79-100) Mean Corpuscular Hemoglobin 25 pg (25-35) Mean Corpuscular Hemoglobin Concent 32 g/dL (31-37) Red Cell Distribution Width 17.0 % (11.5-14.5) Platelet Count 316 x10^3/uL (140-400) Neutrophils (%) (Auto) 67 % (31-73) Lymphocytes (%) (Auto) 21 % (24-48) Monocytes (%) (Auto) 8 % (0-9) Eosinophils (%) (Auto) 3 % (0-3) Basophils (%) (Auto) 1 % (0-3) Neutrophils # (Auto) 5.3 x10^3/uL (1.8-7.7) Lymphocytes # (Auto) 1.6 x10^3/uL (1.0-4.8) Monocytes # (Auto) 0.6 x10^3/uL (0.0-1.1) Eosinophils # (Auto) 0.3 x10^3/uL (0.0-0.7) Basophils # (Auto) 0.1 x10^3/uL (0.0-0.2) Sodium Level 137 mmol/L (136-145) Potassium Level 4.0 mmol/L (3.5-5.1) Chloride Level 102 mmol/L (98-107) Carbon Dioxide Level 29 mmol/L (21-32) Anion Gap 6 (6-14) Blood Urea Nitrogen 18 mg/dL (8-26) Creatinine 0.8 mg/dL (0.7-1.3) Estimated GFR (Cockcroft-Gault) 99.6 Glucose Level 123 mg/dL (70-99) Calcium Level 8.1 mg/dL (8.5-10.1) Test 08/17/21 08:20 Glucose (Fingerstick) 126 mg/dL (70-99) Micro -------- ---- RUN DATE: 08/16/21 [facility] *LIVE* PAGE 1 RUN TIME: 1152 Specimen Inquiry PATIENT: BLESSING YARBROUGH ACCT: [id number] LOC: PMGWOUND U: [id number] AGE/SX: 56/M ROOM: RE08/13/[address]: ROBERT SALEH MD : 1965 BED: DIS: 08/15/21 STATUS: DIS RCR TLOC: SPEC #: [id number] SANTINO: 08/13/21 STATUS: RES REQ #: [id number] RECD: 08/13/[address]: ROBERT SALEH MD SOURCE: LEG ENTR: 08/13/[address]: HI ZAMAN MD SPDESC: WOUND ORDERED: ANAER/AEROB/GS COMMENTS: NO SITE ON REQ OR SPEC; CALLED WOUND CLINIC-CLOSED; RN ON 4N SAID PT TO BE DIRECT ADMIT AND SWAB IS FROM "FEET"; MLG - Procedure Result GRAM STAIN Final Final GRAM NEGATIVE RODS:MANY GRAM POSITIVE COCCI:MANY SQUAMOUS EPI CELL:NONE SEEN PMN (WBCs):NONE SEEN Unless otherwise specified, Testing Performed by: [address] [address] For Inquires, the Physician may contact the Microbiology department at [phone] ANAEROBIC-AEROBIC CULTURE Preliminary Preliminary MIXED AEROBIC AND ANAEROBIC TRACI on 08/16/21 at 1147 INCLUDING: MANY [PSEUDOMONAS AERUGINOSA] MANY [BETA STREP GROUP G] MODERATE [CORYNEBACTERIUM STRIATUM GRP] MODERATE [PREVOTELLA SPECIES] BETA STREP GROUP G PSEUDOMONAS AERUGINOSA PSEUDOMONAS AERUGINOSA CORYNEBACTERIUM STRIATUM GRP PREVOTELLA SPECIES ANTIMICROBIAL SUSCEPTIBILITY Preliminary Comment NEG LIZZY 56 PSEUDOMONAS AERUGINOSA ANTIBIOTIC RESULT INTERPRETATION AMIKACIN <=16 S AZTREONAM <=4 S CEFTAZIDIME <=1 S CIPROFLOXACIN <=0.25 S CEFEPIME <=2 S CEFTAZIDIME/AVIBACTAM <=4 S RUN DATE: 08/16/21 [facility] *LIVE* PAGE 2 RUN TIME: 1152 Specimen Inquiry SPEC: [id number] PATIENT: ZENONBLESSING [id number] (Continued) Procedure Result CONTINUED ON NEXT PAGE RUN DATE: 08/16/21 [facility] *LIVE* PAGE 3 RUN TIME: 1152 Specimen Inquiry SPEC: [id number] PATIENT: BLESSING YARBROUGH [id number] (Continued) ------- ----- Procedure Result ANTIMICROBIAL SUSCEPTIBILITY Preliminary (continued) GENTAMICIN <=2 S LEVOFLOXACIN <=0.5 S MEROPENEM <=1 S PIPERACILLIN/TAZOBACTAM <=8 S TOBRAMYCIN <=2 S Unless otherwise specified, Testing Performed by: [address] [address] For Inquires, the Physician may contact the Microbiology department at [phone] Objective: Assessment: 1. Bilateral lower extremity venous insufficiency ulcers. 2. Right lower extremity large ulcer with secondary superimposed superficial infection with pseudomonas and group B strep. 3. Morbid obesity. 4. Diabetes mellitus, hemoglobin A1c greater than 7.2. 5. Hypertension. 6. Hyperlipidemia. 7. ALLERGIES TO BACTRIM WITH HIVES. Noncompliance with treatment regimen and follow-up visits Plan: Plan of Care Patient can be discharged home on Augmentin and ciprofloxacin for 10 days Limited choices for antibiotics. Discussed with patient regarding potential side effects C. difficile colitis, and rupture etc. Discussed with vascular team and wound team Elevate legs Optimal edema control Management for chronic venous insufficiency Establish caser up Discussed with Dr. Dillon and WIL CHUA MD Aug 17, 2021 08:27
[2021-08-17] MEDS: ASPIRIN 325 MG TABLET PO SCH (09:25)
[2021-08-17] MEDS: LACTOBACILLUS RHAMNOSUS GG 1 CAPSULE. PO SCH ×2 (09:25→21:15)
[2021-08-17] MEDS: INSULIN LISPRO 300 UNITS/3 ML VIAL. SQ SCH ×3 (09:36→17:35)
--- NOTE | 2021-08-17 09:48 | PDOC ---
PROGRESS NOTES Date of Service DATE: 08/17/21 TIME: 09:42 Subjective Subjective 56-year-old male with venous insufficiency and bilateral lower extremity venous ulcerations. Patient is lying comfortably in bed, denies any pain or discomfort. Discussed at length plan of care with the patient and he is willing to follow-up in our office for venous studies as well as follow closely in the wound care center. Objective Objective Vital Signs Date Time Temp Pulse Resp B/P (MAP) Pulse Ox O2 Delivery O2 Flow Rate FiO2 08/17/21 07:00 97.6 65 18 133/62 (85) 96 Room Air 97.6 Intake and Output 08/17/21 07:00 Intake Total 240 ml Output Total 500 ml Balance -260 ml Intake Oral 240 ml Output Urine Total 500 ml Physical Exam Physical Exam Awake and alert Heart rate regular Nonlabored respirations Bilateral lower extremities dressings are dry and intact. 2+ palpable bilateral dorsalis pedis pulses Plan Plan of Care 56 year old male with chronic venous insufficiency and bilateral lower extremity venous ulcerations. Morbid obesity. Diabetes. The patient has good arterial flow to both feet and should have adequate arterial supply to facilitate healing. Dr. Martel reviewed his most recent arterial ultrasound and results are noted in his consultation. I discussed the results of the arterial ultrasound and Dr. Martel's recommendations with Milad the Wound Cis Coordinator, that we are comfortable with applying compression to the patient's bilateral lower extremities. Recommend continue local wound care as ordered. Discussed with the patient he will need aggressive wound care in order to heal these wounds. Also recommend multilayer compression as well as leg elev ation as often as possible. In addition recommend patient follow-up in our office with a venous evaluation most likely comprehensive venous duplex scan and/or ablation procedures. The patient has some financial concerns regarding coverage of treatment. Recommend patient call our office to verify his coverage. Patient is agreeable and will call our office to schedule. Comment Review of Relevant I have reviewed the following items norah (where applicable) has been applied. Labs Laboratory Tests Test 08/15/21 11:59 08/15/21 16:49 08/15/21 20:16 08/16/21 06:50 Glucose (Fingerstick) 121 mg/dL (70-99) 116 mg/dL (70-99) 200 mg/dL (70-99) White Blood Count 7.3 x10^3/uL (4.0-11.0) Red Blood Count 4.25 x10^6/uL (4.30-5.70) Hemoglobin 10.2 g/dL (13.0-17.5) Hematocrit 33.4 % (39.0-53.0) Mean Corpuscular Volume 79 fL (79-100) Mean Corpuscular Hemoglobin 24 pg (25-35) Mean Corpuscular Hemoglobin Concent 31 g/dL (31-37) Red Cell Distribution Width 17.0 % (11.5-14.5) Platelet Count 318 x10^3/uL (140-400) Neutrophils (%) (Auto) 72 % (31-73) Lymphocytes (%) (Auto) 17 % (24-48) Monocytes (%) (Auto) 8 % (0-9) Eosinophils (%) (Auto) 3 % (0-3) Basophils (%) (Auto) 1 % (0-3) Neutrophils # (Auto) 5.2 x10^3/uL (1.8-7.7) Lymphocytes # (Auto) 1.2 x10^3/uL (1.0-4.8) Monocytes # (Auto) 0.6 x10^3/uL (0.0-1.1) Eosinophils # (Auto) 0.2 x10^3/uL (0.0-0.7) Basophils # (Auto) 0.1 x10^3/uL (0.0-0.2) Sodium Level 137 mmol/L (136-145) Potassium Level 4.0 mmol/L (3.5-5.1) Chloride Level 100 mmol/L (98-107) Carbon Dioxide Level 29 mmol/L (21-32) Anion Gap 8 (6-14) Blood Urea Nitrogen 10 mg/dL (8-26) Creatinine 0.8 mg/dL (0.7-1.3) Estimated GFR (Cockcroft-Gault) 99.6 Glucose Level 109 mg/dL (70-99) Calcium Level 8.6 mg/dL (8.5-10.1) Test 08/16/21 08:22 08/16/21 11:44 08/16/21 17:17 08/16/21 21:16 Glucose (Fingerstick) 104 mg/dL (70-99) 129 mg/dL (70-99) 115 mg/dL (70-99) 154 mg/dL (70-99) Test 08/17/21 03:50 08/17/21 08:20 White Blood Count 7.9 x10^3/uL (4.0-11.0) Red Blood Count 4.28 x10^6/uL (4.30-5.70) Hemoglobin 10.8 g/dL (13.0-17.5) Hematocrit 33.5 % (39.0-53.0) Mean Corpuscular Volume 78 fL (79-100) Mean Corpuscular Hemoglobin 25 pg (25-35) Mean Corpuscular Hemoglobin Concent 32 g/dL (31-37) Red Cell Distribution Width 17.0 % (11.5-14.5) Platelet Count 316 x10^3/uL (140-400) Neutrophils (%) (Auto) 67 % (31-73) Lymphocytes (%) (Auto) 21 % (24-48) Monocytes (%) (Auto) 8 % (0-9) Eosinophils (%) (Auto) 3 % (0-3) Basophils (%) (Auto) 1 % (0-3) Neutrophils # (Auto) 5.3 x10^3/uL (1.8-7.7) Lymphocytes # (Auto) 1.6 x10^3/uL (1.0-4.8) Monocytes # (Auto) 0.6 x10^3/uL (0.0-1.1) Eosinophils # (Auto) 0.3 x10^3/uL (0.0-0.7) Basophils # (Auto) 0.1 x10^3/uL (0.0-0.2) Sodium Level 137 mmol/L (136-145) Potassium Level 4.0 mmol/L (3.5-5.1) Chloride Level 102 mmol/L (98-107) Carbon Dioxide Level 29 mmol/L (21-32) Anion Gap 6 (6-14) Blood Urea Nitrogen 18 mg/dL (8-26) Creatinine 0.8 mg/dL (0.7-1.3) Estimated GFR (Cockcroft-Gault) 99.6 Glucose Level 123 mg/dL (70-99) Calcium Level 8.1 mg/dL (8.5-10.1) Glucose (Fingerstick) 126 mg/dL (70-99) Laboratory Tests Test 08/16/21 11:44 08/16/21 17:17 08/16/21 21:16 08/17/21 03:50 Glucose (Fingerstick) 129 mg/dL (70-99) 115 mg/dL (70-99) 154 mg/dL (70-99) White Blood Count 7.9 x10^3/uL (4.0-11.0) Red Blood Count 4.28 x10^6/uL (4.30-5.70) Hemoglobin 10.8 g/dL (13.0-17.5) Hematocrit 33.5 % (39.0-53.0) Mean Corpuscular Volume 78 fL (79-100) Mean Corpuscular Hemoglobin 25 pg (25-35) Mean Corpuscular Hemoglobin Concent 32 g/dL (31-37) Red Cell Distribution Width 17.0 % (11.5-14.5) Platelet Count 316 x10^3/uL (140-400) Neutrophils (%) (Auto) 67 % (31-73) Lymphocytes (%) (Auto) 21 % (24-48) Monocytes (%) (Auto) 8 % (0-9) Eosinophils (%) (Auto) 3 % (0-3) Basophils (%) (Auto) 1 % (0-3) Neutrophils # (Auto) 5.3 x10^3/uL (1.8-7.7) Lymphocytes # (Auto) 1.6 x10^3/uL (1.0-4.8) Monocytes # (Auto) 0.6 x10^3/uL (0.0-1.1) Eosinophils # (Auto) 0.3 x10^3/uL (0.0-0.7) Basophils # (Auto) 0.1 x10^3/uL (0.0-0.2) Sodium Level 137 mmol/L (136-145) Potassium Level 4.0 mmol/L (3.5-5.1) Chloride Level 102 mmol/L (98-107) Carbon Dioxide Level 29 mmol/L (21-32) Anion Gap 6 (6-14) Blood Urea Nitrogen 18 mg/dL (8-26) Creatinine 0.8 mg/dL (0.7-1.3) Estimated GFR (Cockcroft-Gault) 99.6 Glucose Level 123 mg/dL (70-99) Calcium Level 8.1 mg/dL (8.5-10.1) Test 08/17/21 08:20 Glucose (Fingerstick) 126 mg/dL (70-99) Microbiology 08/13/21 Blood Culture - Preliminary, Resulted NO GROWTH AFTER 3 DAYS Medications Current Medications Acetaminophen (Tylenol) 650 mg PRN Q6HRS PRN PO MILD PAIN / TEMP > 100.3'F; Start 08/13/21 at 18:00; Status Cancel Aspirin (Tomy Aspirin) 325 mg DAILY PO Last administered on 08/17/21at 09:25; Start 08/14/21 at 09:00 Atorvastatin Calcium (Lipitor) 10 mg QHS PO Last administered on 08/16/21at 21:09; Start 08/13/21 at 21:00 Insulin Glargine (Lantus Syringe) 10 unit QHS SQ Last administered on 08/16/21at 21:22; Start 08/13/21 at 21:00 Insulin Human Lispro (HumaLOG) 3 units TIDWMEALS SQ Last administered on 08/17/21at 09:36; Start 08/14/21 at 08:00 Dextrose (Dextrose 50%-Water Syringe) 12.5 gm PRN Q15MIN PRN IV SEE COMMENTS; Start 08/13/21 at 18:00 Ondansetron HCl (Zofran) 4 mg PRN Q6HRS PRN IVP NAUSEA/VOMITING Last administered on 08/15/21at 18:03; Start 08/13/21 at 18:00 Al Hydroxide/Mg Hydroxide (Mylanta Plus Xs) 30 ml PRN Q3HRS PRN PO HEARTBURN / GAS; Start 08/13/21 at 18:00 Calcium Carbonate/ Glycine (Tums) 500 mg PRN Q3HRS PRN PO UPSET STOMACH; Start 08/13/21 at 18:00 Zolpidem Tartrate (Ambien) 5 mg PRN QHS PRN PO INSOMNIA, MAY REPEAT IN 1HR Last administered on 08/14/21at 21:02; Start 08/13/21 at 18:00 Acetaminophen/ Hydrocodone Bitart (Lortab 5/325) 1 tab PRN Q4HRS PRN PO MILD PAIN 1-3 Last administered on 08/14/21at 12:26; Start 08/13/21 at 18:00; Stop 08/14/21 at 14:23; Status DC Acetaminophen (Tylenol) 650 mg PRN Q6HRS PRN PO Headaches, Temp > 101.5F; Start 08/13/21 at 18:00 Magnesium Hydroxide (Milk Of Magnesia) 2,400 mg PRN Q12HR PRN PO CONSTIPATION; Start 08/13/21 at 18:00 Enoxaparin Sodium (Lovenox 60mg Syringe) 60 mg Q12HR SQ Last administered on 08/17/21at 09:25; Start 08/13/21 at 21:00 Piperacillin Sod/ Tazobactam Sod (Zosyn Per Pharmacy) 1 each PRN DAILY PRN MC SEE COMMENTS; Start 08/13/21 at 19:00 Piperacillin Sod/ Tazobactam Sod 3.375 gm/Sodium Chloride 50 ml @ 100 mls/hr Q6HRS IV Last administered on 08/17/21at 06:00; Start 08/13/21 at 19:00 Lactobacillus Rhamnosus (Culturelle) 1 cap BID PO Last administered on 08/17/21at 09:25; Start 08/14/21 at 21:00 Acetaminophen/ Hydrocodone Bitart (Lortab 10/325) 1 tab PRN Q4HRS PRN PO PAIN Last administered on 08/16/21at 16:32; Start 08/14/21 at 14:30 Oxycodone/ Acetaminophen (Percocet 10/325) 1 tab PRN DAILY PRN PO DRESSING CHANGES Last administered on 08/16/21at 21:09; Start 08/15/21 at 16:15 Active Scripts Active Metformin Hcl 1,000 Mg Tablet 1,000 Mg PO BIDAC Tylenol (Acetaminophen) 325 Mg Tablet 650 Mg PO PRN Q6HRS PRN Reported Aspirin 325 Mg Tablet 325 Mg PO DAILY Lipitor (Atorvastatin Calcium) 10 Mg Tablet 1 Tab PO QHS Vitals/I & O Vital Sign - Last 24 Hours 08/16/21 08/16/21 08/16/21 08/16/21 11:00 15:00 16:32 17:00 Temp 97.5 97.5 97.5 97.5 Pulse 65 71 Resp 18 18 B/P (MAP) 130/57 (81) 133/69 (90) Pulse Ox 94 94 O2 Delivery Room Air Room Air Room Air Room Air 08/16/21 08/16/21 08/16/21 08/16/21 19:00 20:00 21:09 21:40 Temp 97.8 97.8 Pulse 73 Resp 20 20 20 B/P (MAP) 163/92 (115) Pulse Ox 91 O2 Delivery Room Air Room Air Room Air Room Air 08/16/21 08/17/21 23:00 07:00 Temp 97.8 97.6 97.8 97.6 Pulse 77 65 Resp 20 18 B/P (MAP) 133/64 (87) 133/62 (85) Pulse Ox 91 96 O2 Delivery Room Air Room Air Intake and Output 08/16/21 08/16/21 08/17/21 15:00 23:00 07:00 Intake Total 240 ml Output Total 500 ml Balance -260 ml Justifications for Admission General Conditions Other justification for admit: Diabetic leg wounds 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
--- NOTE | 2021-08-17 10:35 | NUR ---
SW following. Discussed with RN, pt from home, room air, ada diet, IV abx. PT/OT ordered. RN advised no SW needs at this time. SW will continue to follow.
[2021-08-17 11:29] VITALS: BP 142/75
[2021-08-17] MEDS: HYDROcodone/APAP 10/325 1 TAB TABLET PO PRN ×3 (12:33→23:10)
[2021-08-17 15:00] VITALS: BP 145/76
--- NOTE | 2021-08-17 15:45 | PDOC ---
[employer] PROGRESS NOTE Date of Service DOS: DATE: 08/17/21 TIME: 15:44 Chief Complaint Chief Complaint Diabetic leg wounds Bilateral lower extremity cellulitis Peripheral vascular disease DM2 HLD Morbid obesity Plan: Will place consult to vascular surgery Consult to Dr. Durham Will consult wound care nurse Blood cultures ngtd Basal/prandial insulin. Hemoglobin A1c 7.2 Will initiate treatment with Zosyn, continue for now Resume home medications FEN - ADA diet PPX - Lovenox FULL CODE Dispo - inpatient for above History of Present Illness History of Present Illness Patient is a 56 yo male with PMHx DM2, PVD, HLD, chronic diabetic leg wounds, morbid obesity, who presents as a direct admit from wound clinic for concerns of non-healing diabetic leg wounds and cellulitis. He is followed in wound care clinic by Dr. Durham. I spoke with Dr. Durham personally who informed me that a recent lower arterial duplex with [facility] (07/15/21) showed worsened bilateral peripheral artery disease in both lower extremities. He has not been on any recent antibiotics, but was seen by Dr. Durham today who felt inpatient admission was warranted due to extent of cellulitis and non-healing leg wounds. Labs on admission showed WBC 9.8, albumin 2.6, CRP 75. Patient reports associated clear yellow drainage, but no purulence. He denies any fever, chills, nausea, or vomiting. Will admit for further medical management. 08/15: Had significant pain with dressing changes, pain medication increased. Dr. Martel recommending compressive venous duplex study to evaluate for venous insufficiency, and possible venous ablation if significant superficial venous insufficiency noted. Patient is concerned that his insurance would not pay for venous ablation. Risk his scenario he will continue with local wound care once treatment for cellulitis is improved, weekly next day or two. Blood cultures negative to date. Will continue treatment with Zosyn. Continue leg elevation and compression stockings. Stressed weight loss. 08/16 Patient evaluated examined at bedside. Continue antibiotics with Zosyn. Infectious disease and vascular surgery following. Continuing wound care. Blood cultures no growth today. PT OT. 08/17 Patient evaluated and examined at bedside. Resting in bed complaining of some ongoing pain. Will try to change around pain meds. Discussed with Dr. Chandler, can transition to Cipro and Augmentin on discharge for 10 days. Worked with PT OT Home with assistance. Will get pain under control today and plan for discharge tomorrow morning. Vitals/I&O Vitals/I&O: Vital Signs Date Time Temp Pulse Resp B/P (MAP) Pulse Ox O2 Delivery O2 Flow Rate FiO2 08/17/21 12:33 Room Air 08/17/21 11:29 98.0 70 18 142/75 (97) 93 98.0 I & O 08/16/21 08/16/21 08/17/21 15:00 23:00 07:00 Intake Total 240 ml Output Total 500 ml Balance -260 ml Physical Exam Physical Exam: GENERAL: Alert, oriented x 3 male, lying in bed comfortably, in no acute distress. HEENT: Normocephalic, atraumatic. Anicteric. No thrush. LUNGS: Clear. HEART: S1, S2, regular rate. ABDOMEN: Soft, obese. Bowel sounds present. EXTREMITIES: Bilateral lower extremity dressings intact, venous stasis changes present. Dressing not taken down. Wound pictures noted. Bilateral lower extremity edema with hyperpigmentation, skin thickening, large deep subcutaneous ulcer on the left lower leg with minimal erythema, large 11 cm circumferential area of breakdown on the right lower leg chronic venous insufficiency ulcers, dry skin scratch craft present just beyond the dressing in both lower extremities. DERMATOLOGY: Warm, dry, multiple scratch craft present over the upper chest, bilateral upper extremities, and some over the lower extremity beyond the dressing. No purulence noted. General: Alert, Oriented X3, Cooperative Heart: Regular rate Lungs: Clear Abdomen: Other (Obese abdomen) Extremities: No cyanosis Skin: Other (dressings intact bilateral lower extremities, moderate drainage. ) Labs Labs: Laboratory Tests Test 08/16/21 17:17 08/16/21 21:16 08/17/21 03:50 08/17/21 08:20 Glucose (Fingerstick) 115 mg/dL (70-99) 154 mg/dL (70-99) 126 mg/dL (70-99) White Blood Count 7.9 x10^3/uL (4.0-11.0) Red Blood Count 4.28 x10^6/uL (4.30-5.70) Hemoglobin 10.8 g/dL (13.0-17.5) Hematocrit 33.5 % (39.0-53.0) Mean Corpuscular Volume 78 fL (79-100) Mean Corpuscular Hemoglobin 25 pg (25-35) Mean Corpuscular Hemoglobin Concent 32 g/dL (31-37) Red Cell Distribution Width 17.0 % (11.5-14.5) Platelet Count 316 x10^3/uL (140-400) Neutrophils (%) (Auto) 67 % (31-73) Lymphocytes (%) (Auto) 21 % (24-48) Monocytes (%) (Auto) 8 % (0-9) Eosinophils (%) (Auto) 3 % (0-3) Basophils (%) (Auto) 1 % (0-3) Neutrophils # (Auto) 5.3 x10^3/uL (1.8-7.7) Lymphocytes # (Auto) 1.6 x10^3/uL (1.0-4.8) Monocytes # (Auto) 0.6 x10^3/uL (0.0-1.1) Eosinophils # (Auto) 0.3 x10^3/uL (0.0-0.7) Basophils # (Auto) 0.1 x10^3/uL (0.0-0.2) Sodium Level 137 mmol/L (136-145) Potassium Level 4.0 mmol/L (3.5-5.1) Chloride Level 102 mmol/L (98-107) Carbon Dioxide Level 29 mmol/L (21-32) Anion Gap 6 (6-14) Blood Urea Nitrogen 18 mg/dL (8-26) Creatinine 0.8 mg/dL (0.7-1.3) Estimated GFR (Cockcroft-Gault) 99.6 Glucose Level 123 mg/dL (70-99) Calcium Level 8.1 mg/dL (8.5-10.1) Test 08/17/21 11:55 Glucose (Fingerstick) 113 mg/dL (70-99) Comment Review of Relevant I have reviewed the following items norah (where applicable) has been applied. Justifications for Admission General Conditions Other justification for admit: Diabetic leg wounds Other Justification PENNY MATTHEW MD Aug 17, 2021 15:45
--- NOTE | 2021-08-17 16:21 | NUR ---
Wound Care Patient refused to have multilayer compression wraps applied today, he requested we come back first thing in the morning.
[2021-08-17 19:40] VITALS: BP 127/57
[2021-08-17] MEDS: ATORVASTATIN CALCIUM 10 MG TABLET. PO SCH (21:15)
[2021-08-17] MEDS: INSULIN GLARGINE SYRINGE. SQ SCH (21:20)
[2021-08-17] MEDS: ZOLPIDEM 5 MG TABLET. PO PRN (23:05)
[2021-08-17 23:13] VITALS: BP 140/69
[2021-08-18] MEDS: PIPERACILLIN/TAZOBACTAM 3.375 GM in IV NORMAL SALINE 50ML 50 ML IV SCH (05:45)
[2021-08-18 07:00] VITALS: BP 127/59
[2021-08-18 07:36] LABS: BASO # 0.1 x10^3/uL (0.0-0.2); BASO % 1 % (0-3); EOS # 0.3 x10^3/uL (0.0-0.7); EOS % 3 % (0-3); HEMATOCRIT 34.6 % (39.0-53.0); HEMOGLOBIN 10.9 g/dL (13.0-17.5); LYMPH # 1.6 x10^3/uL (1.0-4.8); LYMPH % 20 % (24-48); MEAN CORPUSCULAR HEMOGLOBIN 25 pg (25-35); MEAN CORPUSCULAR HGB CONC 32 g/dL (31-37); MEAN CORPUSCULAR VOLUME 78 fL (79-100); MONO # 0.6 x10^3/uL (0.0-1.1); MONO % 8 % (0-9); NEUT # 5.3 x10^3/uL (1.8-7.7); NEUT % 68 % (31-73); PLATELET COUNT 320 x10^3/uL (140-400); RED BLOOD COUNT 4.43 x10^6/uL (4.30-5.70); RED CELL DISTRIBUTION WIDTH 16.8 % (11.5-14.5); WHITE BLOOD COUNT 7.7 x10^3/uL (4.0-11.0)
[2021-08-18 07:53] LABS: CALCIUM 8.2 mg/dL (8.5-10.1)
[2021-08-18] MEDS: INSULIN LISPRO 300 UNITS/3 ML VIAL. SQ SCH ×2 (08:00→13:37)
[2021-08-18] MEDS: ASPIRIN 325 MG TABLET PO SCH (08:10)
[2021-08-18] MEDS: LACTOBACILLUS RHAMNOSUS GG 1 CAPSULE. PO SCH (08:10)
--- NOTE | 2021-08-18 08:51 | PDOC ---
Infectious Disease Note Subjective: Subjective Patient without complaints. Vital Signs: Vital Signs Vital Signs Date Time Temp Pulse Resp B/P (MAP) Pulse Ox O2 Delivery O2 Flow Rate FiO2 08/18/21 07:00 98.0 63 18 127/59 (81) 91 Room Air 98.0 Physical Exam: PHYSICAL EXAM GENERAL: Alert, oriented x 3 male, lying in bed comfortably, in no acute distress. HEENT: Normocephalic, atraumatic. Anicteric. No thrush. LUNGS: Clear. HEART: S1, S2, regular rate. ABDOMEN: Soft, obese. Bowel sounds present. EXTREMITIES: Bilateral lower extremity dressings intact, venous stasis changes present. Dressing not taken down. Wound pictures noted. Bilateral lower extremity edema with hyperpigmentation, skin thickening, large deep subcutaneous ulcer on the left lower leg with minimal erythema, large 11 cm circumferential area of breakdown on the right lower leg chronic venous insufficiency ulcers, dry skin scratch craft present just beyond the dressing in both lower extremities. DERMATOLOGY: Warm, dry, multiple scratch craft present over the upper chest, bilateral upper extremities, and some over the lower extremity beyond the dressing. Improved a lot. No purulence noted. Medications: Inpatient Meds: Medications reviewed. Labs: Lab Laboratory Tests Test 08/17/21 11:55 08/17/21 16:51 08/17/21 20:48 08/18/21 06:45 Glucose (Fingerstick) 113 mg/dL (70-99) 121 mg/dL (70-99) 114 mg/dL (70-99) White Blood Count 7.7 x10^3/uL (4.0-11.0) Red Blood Count 4.43 x10^6/uL (4.30-5.70) Hemoglobin 10.9 g/dL (13.0-17.5) Hematocrit 34.6 % (39.0-53.0) Mean Corpuscular Volume 78 fL (79-100) Mean Corpuscular Hemoglobin 25 pg (25-35) Mean Corpuscular Hemoglobin Concent 32 g/dL (31-37) Red Cell Distribution Width 16.8 % (11.5-14.5) Platelet Count 320 x10^3/uL (140-400) Neutrophils (%) (Auto) 68 % (31-73) Lymphocytes (%) (Auto) 20 % (24-48) Monocytes (%) (Auto) 8 % (0-9) Eosinophils (%) (Auto) 3 % (0-3) Basophils (%) (Auto) 1 % (0-3) Neutrophils # (Auto) 5.3 x10^3/uL (1.8-7.7) Lymphocytes # (Auto) 1.6 x10^3/uL (1.0-4.8) Monocytes # (Auto) 0.6 x10^3/uL (0.0-1.1) Eosinophils # (Auto) 0.3 x10^3/uL (0.0-0.7) Basophils # (Auto) 0.1 x10^3/uL (0.0-0.2) Sodium Level 137 mmol/L (136-145) Potassium Level 4.0 mmol/L (3.5-5.1) Chloride Level 101 mmol/L (98-107) Carbon Dioxide Level 29 mmol/L (21-32) Anion Gap 7 (6-14) Blood Urea Nitrogen 15 mg/dL (8-26) Creatinine 1.0 mg/dL (0.7-1.3) Estimated GFR (Cockcroft-Gault) 77.0 Glucose Level 98 mg/dL (70-99) Calcium Level 8.2 mg/dL (8.5-10.1) Test 08/18/21 08:36 Glucose (Fingerstick) 101 mg/dL (70-99) Micro ---- -------- RUN DATE: 08/16/21 [facility] *LIVE* PAGE 1 RUN TIME: 1152 Specimen Inquiry PATIENT: BLESSING YARBROUGH ACCT: [id number] LOC: PMGWOUND U: [id number] AGE/SX: 56/M ROOM: RE08/13/[address]: ROBERT SALEH MD : 1965 BED: DIS: 08/15/21 STATUS: DIS RCR TLOC: SPEC #: [id number] SANTINO: 08/13/21 STATUS: RES REQ #: [id number] RECD: 08/13/[address]: ROBERT SALEH MD SOURCE: LEG ENTR: 08/13/[address]: HI ZAMAN MD SPDESC: WOUND ORDERED: ANAER/AEROB/GS COMMENTS: NO SITE ON REQ OR SPEC; CALLED WOUND CLINIC-CLOSED; RN ON 4N SAID PT TO BE DIRECT ADMIT AND SWAB IS FROM "FEET"; MLG ------- ----- Procedure Result GRAM STAIN Final Final GRAM NEGATIVE RODS:MANY GRAM POSITIVE COCCI:MANY SQUAMOUS EPI CELL:NONE SEEN PMN (WBCs):NONE SEEN Unless otherwise specified, Testing Performed by: [address] [address] For Inquires, the Physician may contact the Microbiology department at [phone] ANAEROBIC-AEROBIC CULTURE Preliminary Preliminary MIXED AEROBIC AND ANAEROBIC TRACI on 08/16/21 at 1147 INCLUDING: MANY [PSEUDOMONAS AERUGINOSA] MANY [BETA STREP GROUP G] MODERATE [CORYNEBACTERIUM STRIATUM GRP] MODERATE [PREVOTELLA SPECIES] BETA STREP GROUP G PSEUDOMONAS AERUGINOSA PSEUDOMONAS AERUGINOSA CORYNEBACTERIUM STRIATUM GRP PREVOTELLA SPECIES ANTIMICROBIAL SUSCEPTIBILITY Preliminary Comment NEG LIZZY 56 PSEUDOMONAS AERUGINOSA ANTIBIOTIC RESULT INTERPRETATION AMIKACIN <=16 S AZTREONAM <=4 S CEFTAZIDIME <=1 S CIPROFLOXACIN <=0.25 S CEFEPIME <=2 S CEFTAZIDIME/AVIBACTAM <=4 S RUN DATE: 08/16/21 [facility] *LIVE* PAGE 2 RUN TIME: 1152 Specimen Inquiry SPEC: [id number] PATIENT: BLESSING YARBROUGH [id number] (Continued) Procedure Result CONTINUED ON NEXT PAGE RUN DATE: 08/16/21 [facility] *LIVE* PAGE 3 RUN TIME: 1152 Specimen Inquiry SPEC: [id number] PATIENT: BLESSING YARBROUGH [id number] (Continued) --- --------- Procedure Result ANTIMICROBIAL SUSCEPTIBILITY Preliminary (continued) GENTAMICIN <=2 S LEVOFLOXACIN <=0.5 S MEROPENEM <=1 S PIPERACILLIN/TAZOBACTAM <=8 S TOBRAMYCIN <=2 S Unless otherwise specified, Testing Performed by: [address] [address] For Inquires, the Physician may contact the Microbiology department at [phone] Objective: Assessment: 1. Bilateral lower extremity venous insufficiency ulcers. 2. Right lower extremity large ulcer with secondary superimposed superficial infection with pseudomonas and group B strep. 3. Morbid obesity. 4. Diabetes mellitus, hemoglobin A1c greater than 7.2. 5. Hypertension. 6. Hyperlipidemia. 7. ALLERGIES TO BACTRIM WITH HIVES. Noncompliance with treatment regimen and follow-up visits Plan: Plan of Care Okay to discharge home Augmentin and ciprofloxacin for 10 days Limited choices for antibiotics. Discussed with patient regarding potential side effects C. difficile colitis, tendon rupture etc. Discussed with vascular team and wound team yesterday Elevate legs Optimal edema control Management for chronic venous insufficiency and compliance discussed Establish corporate security officer ASAP Discussed with Dr. Dillon and RN WIL PÉREZ MD Aug 18, 2021 08:51
[2021-08-18] MEDS ORDERED: AMOX1TAB11 PO (09:54)
[2021-08-18] MEDS ORDERED: CIPR250T30 PO (09:54)
[2021-08-18] MEDS ORDERED: HYDR-2769 PO (09:54)
--- NOTE | 2021-08-18 09:58 | PDOC3 ---
[facility]-Discharge Summary Date of Admission: Date of Admission: Aug 13, 2021 Date of Discharge: Date of Discharge: Aug 18, 2021 Admission Diagnosis: Problems: (1) Diabetic foot ulcers (2) Diabetic ankle ulcer Discharge Diagnosis: Discharge Diagnosis: Same Consults: Consults: Infectious disease, vascular surgery, wound care Hospital Course: Hospital Course: hief Complaint Diabetic leg wounds Bilateral lower extremity cellulitis Peripheral vascular disease DM2 HLD Morbid obesity Plan: Will place consult to vascular surgery Consult to Dr. Durham Will consult wound care nurse Blood cultures ngtd Basal/prandial insulin. Hemoglobin A1c 7.2 Will initiate treatment with Zosyn, continue for now Resume home medications FEN - ADA diet PPX - Lovenox FULL CODE Dispo - inpatient for above History of Present Illness History of Present Illness Patient is a 56 yo male with PMHx DM2, PVD, HLD, chronic diabetic leg wounds, morbid obesity, who presents as a direct admit from wound clinic for concerns of non-healing diabetic leg wounds and cellulitis. He is followed in wound care clinic by Dr. Durham. I spoke with Dr. Durham personally who informed me that a recent lower arterial duplex with [facility] (07/15/21) showed worsened bilateral peripheral artery disease in both lower extremities. He has not been on any recent antibiotics, but was seen by Dr. Durham today who felt inpatient admission was warranted due to extent of cellulitis and non-healing leg wounds. Labs on admission showed WBC 9.8, albumin 2.6, CRP 75. Patient reports associat ed clear yellow drainage, but no purulence. He denies any fever, chills, nausea, or vomiting. Will admit for further medical management. 08/15: Had significant pain with dressing changes, pain medication increased. Dr. Martel recommending compressive venous duplex study to evaluate for venous insufficiency, and possible venous ablation if significant superficial venous insufficiency noted. Patient is concerned that his insurance would not pay for venous ablation. Risk his scenario he will continue with local wound care once treatment for cellulitis is improved, weekly next day or two. Blood cultures negative to date. Will continue treatment with Zosyn. Continue leg elevation and compression stockings. Stressed weight loss. 08/16 Patient evaluated examined at bedside. Continue antibiotics with Zosyn. Infectious disease and vascular surgery following. Continuing wound care. Blood cultures no growth today. PT OT. 08/17 Patient evaluated and examined at bedside. Resting in bed complaining of some ongoing pain. Will try to change around pain meds. Discussed with Dr. Chandler, can transition to Cipro and Augmentin on discharge for 10 days. Worked with PT OT Home with assistance. Will get pain under control today and plan for discharge tomorrow morning. 08/18 Patient evaluated and examined at bedside. Doing well this morning says pain is pretty well controlled. Says he has the most pain when he is getting her dressings changed. Start Cipro Augmentin today. Discharge home. I spent greater than 30 minutes on the planning coordination and evaluation [id number] with the patient in terms of discharge. I discussed advance care planning with this patient for 17 minutes. Disposition: Disposition/Orders: D/C to Home Activity: Activity: Resume previous activity Diet: Diet: Regular Medications: Home Meds Active Scripts Hydrocodone Bit/Acetaminophen (HYDROCODONE-APAP 10-325 ) 1 Tab Tablet, 1 TAB PO PRN Q4HRS PRN for PAIN for 30 Days, #60 TAB Prov:PENNY MATTHEW MD 08/18/21 Ciprofloxacin Hcl (CIPRO) 250 Mg Tablet, 500 MG PO BID for cellulitis for 10 Days, #40 TAB Prov:PENNY MATTHEW MD 08/18/21 Amoxicillin/Potassium Clav (AMOX TR-K CLV 875-125 MG TAB) 1 Each Tablet, 1 TAB PO BID for cellulitis for 10 Days, #20 TAB Prov:PENNY MATTHEW MD 08/18/21 Metformin Hcl (METFORMIN HCL) 1,000 Mg Tablet, 1000 MG PO BIDAC, #60 TAB Prov:HI ZAMAN MD 03/31/15 Acetaminophen (TYLENOL) 325 Mg Tablet, 650 MG PO PRN Q6HRS PRN for PAIN / TEMP, #30 TAB Prov:HI ZAMAN MD 03/31/15 Reported Medications Aspirin (ASPIRIN) 325 Mg Tablet, 325 MG PO DAILY for supplement, TAB 08/13/21 Atorvastatin Calcium (LIPITOR) 10 Mg Tablet, 1 TAB PO QHS, #90 TAB 1 Refill 04/05/16 Scheduled Amoxicillin/Potassium Clav (Amox Tr-K Clv 875-125 Mg Tab), 1 TAB PO BID Aspirin (Aspirin), 325 MG PO DAILY, (Reported) Atorvastatin Calcium (Lipitor), 1 TAB PO QHS, (Reported) Ciprofloxacin Hcl (Cipro), 500 MG PO BID Metformin Hcl (Metformin Hcl), 1,000 MG PO BIDAC Scheduled PRN Acetaminophen (Tylenol), 650 MG PO PRN Q6HRS PRN for PAIN / TEMP Hydrocodone Bit/Acetaminophen (Hydrocodone-Apap 10-325 ), 1 TAB PO PRN Q4HRS PRN for PAIN Justicifation of Admission Dx: Justifications for Admission: Justification of Admission Dx: Yes Cellulitis: Cellulitis PENNY MATTHEW MD Aug 18, 2021 09:58
[2021-08-18] MEDS ORDERED: AMOXICILLIN/K CLAV 875/125MG TABLET. PO SCH (10:00)
[2021-08-18] MEDS ORDERED: CIPROFLOXACIN HCL 250 MG TABLET. PO SCH (10:00)
--- NOTE | 2021-08-18 10:36 | NUR ---
SW following. Discussed with RN, discharge order for home with self care. RN advised no SW needs.
[2021-08-18 11:00] VITALS: BP 142/78
--- NOTE | 2021-08-18 14:21 | NUR ---
Wound/Ostomy Care Wound Type/Assessment: Wound care follow up for bilateral lower legs VLUs, pt known to wound care team from outpatient setting, was sent to hospital on Monday from wound care center for worsening of bilateral VLUs. No other wounds noted. Bilateral leg wound cleanse, measured, photographed and redressed, pt tolerated dressing changes after having pain medications on board. Pt educated on importance of having dressing changes, elevating legs and keeping compression wraps and medigrips on for compression. Treatment Recommendations/Plan: Cleanse wounds with saline or wound wash and pat dry. Bilateral lower legs: cover with Hydrofera blue transfer, Optilock, ABDs, then applied tubigrips size F. Leg was then wrapped with Coban layer from base of toes to just below knee in a spiral fashion with 50% overlay and 50% stretch. Size G Medigrip placed over BLE wraps to keep in place. Education provided: Lengthy education about leg elevation and compression with pt, PU prevention discussed. Dr. Durham also discussed the same, at length. Offloading surface/device: pillows to elevate legs Recommended Referrals/Tests: vascular surgery following, agreeable with compression wraps for Venous insufficiency ulcers, Tianna Thomas and Vascular surgeon reviewed Arterial duplex and stated pt has adequate blood flow to compress. Discharge Recommendations for dressings: Same as above, pt will f/u on 08/20 in the wound clinic at 1330.
--- NOTE | 2021-08-18 15:06 | NUR ---
patient discharged in wheelchair with family. Patient received all discharge orders. Medications called in to pharmacy . Follow up appts given to patient , patient verbalized understanding
== END 2021-08-18 15:00 | disposition home or self-care (01) | DRG 638 ==
LOC: 4 NORTH 17:00
PROVIDERS: ADMIT Family Medicine; ATTEND Family Medicine
DX: E11.621 Type 2 diabetes mellitus with foot ulcer (principal); L03.115 Cellulitis of right lower limb; L97.309 Non-pressure chronic ulcer of unspecified ankle with unspecified severity; L97.919 Non-pressure chronic ulcer of unspecified part of right lower leg with unspecified severity; L97.929 Non-pressure chronic ulcer of unspecified part of left lower leg with unspecified severity; L03.116 Cellulitis of left lower limb; Z68.43 Body mass index [BMI] 50.0-59.9, adult; B95.1 Streptococcus, group B, as the cause of diseases classified elsewhere; B96.5 Pseudomonas (aeruginosa) (mallei) (pseudomallei) as the cause of diseases classified elsewhere; E11.40 Type 2 diabetes mellitus with diabetic neuropathy, unspecified; E11.51 Type 2 diabetes mellitus with diabetic peripheral angiopathy without gangrene; E66.01 Morbid (severe) obesity due to excess calories; E78.5 Hyperlipidemia, unspecified; G25.81 Restless legs syndrome; I10 Essential (primary) hypertension; I87.2 Venous insufficiency (chronic) (peripheral); I87.8 Other specified disorders of veins; L97.509 Non-pressure chronic ulcer of other part of unspecified foot with unspecified severity; Z83.3 Family history of diabetes mellitus; Z88.1 Allergy status to other antibiotic agents; Z91.19 Patient's noncompliance with other medical treatment and regimen; Z88.8 Allergy status to other drugs, medicaments and biological substances
CPT/HCPCS: 36415; 80048; 80053; 82962; 83036; 83605; 85025; 86140; 87040; J1650; J1815; J2405; J2543; 97530-GP; 97535-GO; G0378